=== PATIENT | male | born 1940 | race Caucasian/White ===

== ENCOUNTER 2016-12-02 05:16 | Inpatient (IN) | payer MEDICARE ==
[~2016-12-02] VITALS: Ht 167.6 cm; Wt 83.9 kg
[2016-12-02 05:25] VITALS: BP 138/78; PULSE 80; RESP 16; TEMP 99.7; O2SAT 97
--- NOTE | 2016-12-02 05:25 | NUR ---
Placed in room 2 . Placed on chemic mangler, blood pressure machine and pulse oximeter. To gown for exam. Side rails up. Report given to Say CRESPO.
--- NOTE | 2016-12-02 05:30 | NUR ---
Pt BIB ALS with c/o sharp subternal chestpain, 07/11, non-radiating, started when pt woke up. Pt c/o pain upon inspiration. Given 162 mg aspirin en-route, POCT glucose 412 per EMT. Vietnamese speaking, A&Ox4, denies SOB, denies N/V/D, skin intact. Will continue to monitor
--- NOTE | 2016-12-02 05:32 | NUR ---
Louise mai in [facility] - 12/02/16 at 0627 by [email or web address] MD Thrasher at bedside examining pt
--- NOTE | 2016-12-02 05:46 | NUR ---
ER at bedside examining patient.
[2016-12-02] MEDS ORDERED: ASPIRIN 81 MG TAB.CHEW PO ONE (06:00)
[2016-12-02] MEDS ORDERED: NITROGLYCERIN 0.4 MG TAB.SUBL SL ONE (06:00)
[2016-12-02] MEDS ORDERED: NACL 0.9% 1,000 ML IV ONE ×2 (06:00→07:15)
[2016-12-02] MEDS ORDERED: MORPHINE SULFATE 10 MG/ML VIAL IVP ONE (06:00)
[2016-12-02 06:25] LABS: HEMATOCRIT 36.1 % (36-54); HEMOGLOBIN 12.3 g/dL (14.0-18.0); MEAN CORPUSCULAR HEMOGLOBIN 32 pg (27-31); MEAN CORPUSCULAR HGB CONC 34 % (32-36); MEAN CORPUSCULAR VOLUME 93 fL (79.0-98.0); PLATELET COUNT (AUTO) 173 K/uL (130-430); RED CELL DISTRIBUTION WIDTH 13.7 % (9.0-15.0); WHITE BLOOD COUNT (AUTO) 21.7 K/uL (4.8-10.8)
--- NOTE | 2016-12-02 06:28 | NUR ---
Pt stated he does not know medication list and does not know family's phone number. Unable to obtain medication list
[2016-12-02 06:31] LABS: ANION GAP 12 (5-15); CALCIUM 9.1 mg/dL (8.4-11.0); CHLORIDE 100 mmol/L (98-107); CREATININE 1.26 mg/dL (0.55-1.30); GLUCOSE 333 mg/dL (70-99); POTASSIUM 4.2 mmol/L (3.5-5.1); SODIUM SERUM 134 mmol/L (136-145); UREA NITROGEN, BLOOD 18 mg/dL (8-21)
[2016-12-02 06:35] LABS: ALANINE AMINOTRANSFERASE 16 U/L (12-78); ALBUMIN 3.3 g/dL (3.4-4.8); ASPARTATE AMINOTRANSFERASE 16 U/L (10-37); CHOLESTEROL 150 mg/dL (<200); CREATINE KINASE, TOTAL 54 U/L (39-308); HDL CHOLESTEROL 35 mg/dL (>45); LDL CHOLESTEROL 89 mg/dL (<100); TOTAL PROTEIN, SERUM 7.1 g/dL (6.4-8.3); TRIGLYCERIDES 115 mg/dL (30-150)
[2016-12-02 06:37] LABS: INR 1.1 (0.80-1.20); PROTHROMBIN TIME 11.5 SECS (9.5-12.5)
--- NOTE | 2016-12-02 06:42 | NUR ---
BP 100/54 , HR 77, 100% on 2L NC. Pt stated his chestpain is 9/10. at bedside evaluating pt
[2016-12-02 06:49] LABS: BILIRUBIN,URINE NEGATIVE (NEGATIVE); CLARITY/URINE CLEAR (CLEAR); COLOR,URINE YELLOW (YELLOW); GLUCOSE,URINE 3+ (NEGATIVE); KETONES,URINE TRACE (NEGATIVE); LEUKOCYTE ESTERASE ,URINE TRACE (NEGATIVE); NITRITE, URINE NEGATIVE (NEGATIVE); PROTEIN URINE NEGATIVE (NEGATIVE); UROBILINOGEN,URINE 0.2 (0.2-1.0)
[2016-12-02 06:51] LABS: BLOOD, URINE TRACE (NEGATIVE)
[2016-12-02 06:56] LABS: BACTERIA,URINE FEW /HPF (None Seen); MUCUS,URINE 1+ /LPF (None Seen); RBC,URINE 0-3 /HPF (0-3); YEAST,URINE Few /HPF (None Seen)
[2016-12-02] MEDS ORDERED: cefTRIAXone 1 GM in D5W 50 ML IV ONE (07:00)
--- NOTE | 2016-12-02 07:05 | NUR ---
Report given to sarah CRESPO, care endorsed
--- NOTE | 2016-12-02 07:22 | NUR ---
2L fluid ordered in ER, Dr. Chiang ordered NS for floor as well-meets fluid requirement for sepsis.
--- NOTE | 2016-12-02 07:28 | NUR ---
Patient in stable condition, sleeping in bed, wakens to name, no distress noted.
--- NOTE | 2016-12-02 07:43 | NUR ---
ADMIT NOTE Received pt from ER to the floor with a diagnosis of Sepsis. Admission process initiated. patient oriented to pain management, safety and call light-teach back done.
--- NOTE | 2016-12-02 07:45 | NUR ---
Patient will be admitted to care of Dr. Chiang. Admitted to tele unit. Will go to room 135-admission room. Summary report printed. Report given to Kay CRESPO at bedside.
[2016-12-02 07:57] VITALS: BP 113/59; PULSE 68; RESP 24; TEMP 98.4; O2SAT 96
--- NOTE | 2016-12-02 08:00 | NUR ---
Received report from Admission RN Kay. Patient is awake alert oriented x3, forgetful. Pt unable to tell me where he came from, he does not remember the name of the facility. Pt complain of chest pain 8/10 especially when breathing in. Will monitor and medicate per order. Pt has two IV sites, Right ac and left AV, both are intact , and flushing well. Breakfast ordered for pt who is a diabetic. Educated on the call light as well as fall precautions, and to call before getting up. Pt verbalized understanding. Translation provided by Estephania THACKER.
[2016-12-02 08:25] LABS: ATYPICAL LYMPHOCYTES % 0 % (0-0); BAND % (MANUAL) 0 % (0-6); BASOPHILS % (MANUAL) 0 % (0-2); EOSINOPHILS % (MANUAL) 1 % (0-7); LYMPHOCYTES % (MANUAL) 10 % (20-46); MONOCYTES % (MANUAL) 4 % (0-11)
[2016-12-02] MEDS ORDERED: GLUCOSE 15 GM GEL (in 37.5 GM TUBE) PO PRN (08:45)
[2016-12-02] MEDS ORDERED: DEXTROSE 50%-WATER 50 ML DISP.SYRIN IVP PRN ×2 (08:45)
[2016-12-02] MEDS: NACL 0.9% 1,000 ML IV SCH ×2 (08:55→23:33)
[2016-12-02] MEDS ORDERED: VANCOMYCIN HCL 1,000 MG in NS 250 ML IV SCH (10:00)
[2016-12-02] MEDS ORDERED: DOCUSATE SODIUM 100 MG CAPSULE PO PRN (10:00)
[2016-12-02] MEDS ORDERED: LORazepam 2 MG/ML VIAL IVP PRN (10:00)
[2016-12-02] MEDS ORDERED: ONDANSETRON HCL 4 MG/2 ML VIAL IVP PRN (10:00)
[2016-12-02] MEDS ORDERED: MAGNESIUM SULFATE 50 ML IV PRN (10:00)
--- NOTE | 2016-12-02 10:38 | NUR ---
Cardiology consult Order received for a consult with Dr Casillas for chest pain. Dr Casillas currently rounding, and was made aware by Dr Chiang. Will follow up as needed.
[2016-12-02] MEDS: ACETAMINOPHEN 325 MG TABLET PO PRN ×3 (10:40→20:40)
[2016-12-02] MEDS: MORPHINE 2 MG/ML INJ. SYRINGE IVP PRN ×2 (10:56→19:00)
--- NOTE | 2016-12-02 11:28 | NUR ---
PT REFUSES CT SCAN PT STATED HE DOES NOT WANT ADDITIONAL TESTS AND THAT "IF IT IS HIS TIME TO GO, THEN HE IS OK WITH THAT." UNABLE TO OBTAIN CONSENT FROM THE CONTACT LISTED ON FACE-SHEET: NUMBER IS NON-FUNCTIONAL. PT DOES NOT RECALL NAME OR PHONE NUMBER OF CONTACT
[2016-12-02 11:29] VITALS: BP 111/53; PULSE 73; RESP 16; TEMP 99.4; O2SAT 93
[2016-12-02] MEDS: INSULIN REGULAR, HUMAN 100 UNITS/ML, 10 ML VIAL (novoLIN R) SUBCUT PRN ×3 (11:53→20:43)
--- NOTE | 2016-12-02 12:00 | NUR ---
Unable to confirm patient identity Patient does note have anyone we cauld call. Case management and admissions made aware and ER was also made aware on admission. Unable to obtain consent for ct contrast consent
--- NOTE | 2016-12-02 12:09 | NUR ---
Dr rodríguez notified of lactic acid as well as pt refusing ct scan.
--- NOTE | 2016-12-02 12:30 | NUR ---
Pt moved to 105A due to noted increased pt confusion forgetful unable to call for help using the call light. Bed alarm armed, fall bracelet on arm.
--- NOTE | 2016-12-02 13:11 | NUR ---
Called dr Ce Larsen MD listed as the primary MD. Got numbers for Pt's son and intensive care anaesthetist. Clement Contreas : Darby Hebert personal lines account manager. : [phone]
[2016-12-02] MEDS: PIPERACILLIN/TAZO 3.375/DEX-IS 50 ML IV SCH ×3 (13:15→23:29)
--- NOTE | 2016-12-02 13:18 | NUR ---
CODE STATUS - FULL CODE per son. Also received consent for CT chest with contrast from son. Questionnaire filled out with son over the phone.
[2016-12-02] MEDS ORDERED: IOHEXOL 100 ML IV ONE (13:48)
--- NOTE | 2016-12-02 14:05 | NUR ---
Roller Helper Note ADJUNCT FACULTY INSTRUCTOR spoke briefly with patient's son, Clement, after he spoke with Aron CRESPO. He stated he planned for patient to return to the place he was living prior to hospitalization. The number he provided for patient's home, , is no longer in service. He did not have an address available. [facility] phoned the number for Darby Hebert, [phone], possibly patient's caregiver. A man answered but [facility] had some difficulty communicating with him. He stated he knows the patient and that Darby should be home later today. [facility] will attempt to call the number again later. Addendum: 12/02/16 at 1538 by Angela Raines LCSW [facility] has attempted to phone caregiver Darby Hebert, , several times. One other time the same man answered as above. He now stated Darby should be home after 4pm. Will try again after 4. Addendum: 12/02/16 at 1727 by Angela Raines LCSW ADJUNCT FACULTY INSTRUCTOR spoke with Darby Hebert who stated patient has not lived with her for three weeks. She could no longer manage his care and sent him to [facility]. She did not know where he was discharged to after that. ADJUNCT FACULTY INSTRUCTOR spoke with [facility] [employer] who was able to find out through the fire station where patient had been picked up: [address] [place] [address]. ADJUNCT FACULTY INSTRUCTOR phoned [facility] [place] ([phone]). They referred to [employer] ([phone]). They referred to [facility] ([phone]), who referred back to [facility]. The address is actually [address] [place] [address] and under the [employer] [place] [facility] [place] jurisdiction. They found a phone number associated with the address, . ADJUNCT FACULTY INSTRUCTOR phoned. Ra Domingo answered. Patient rents a room there. If patient is ready for discharge home, Ra could transport him. ADJUNCT FACULTY INSTRUCTOR notified Jessie CRESPO of above and Jeanine in Admitting. Patient home information: Rents a room at [address] [place] [address] Ra Domingo cleaner assistant [phone]
--- NOTE | 2016-12-02 14:20 | NUR ---
Dr Feldman consult paged.
[2016-12-02 15:30] VITALS: BP 118/62; PULSE 86; RESP 16; TEMP 101; O2SAT 94
--- NOTE | 2016-12-02 17:49 | NUR ---
DR GILBERT ROUNDS NOTIFIED OF NEW CONSULT AND FEVER. ORDERS RECEIVED
--- NOTE | 2016-12-02 19:04 | NUR ---
Closing note. Patient repoeted pain 6/10 to the chest. PRN morphine administered. Pt is otherwise stable. Temp at [facility] tie is 99.2F. Ice backs behind head and the axillas as well.
[2016-12-02 19:45] VITALS: BP 109/52; PULSE 73; RESP 20; TEMP 99.4; O2SAT 95
--- NOTE | 2016-12-02 19:45 | NUR ---
INITIAL NOTES: PT IS AWAKE , CONFUSED ; DENIED PAIN AT THIS TIME; TEMP 99.4; PT REFUSED ICE PACK ; WILL MONITOR AND IF NEEDED WILL GIVE TYLENOL; OTHERWISE VITALS ARE STABLE ; NOT IN ANY ACUTE DISTRESS; ON ROOM AIR , RESPIRATION EVEN AND NONLABORED.IV FLUID INFUSING TO THE LEFT HAND 20 G, NO S/S OF ANY INFILTRATION NOTED ;PT IS INCONTINENT WITH URINE , PERICARE GIVEN AND LINEN CHANGED ;TELE MONITOR SHOWS SR WITH BBB ; BED IN LOW AND LOCK POSITION ; SIDE RAILS ARE UP X3; CALL STEPHENS IN REACH ; ROOM CLOSE TO NURSES STATION ;WILL CONTINUE TO MONITOR.
[2016-12-02] MEDS: FLUCONAZOLE 200 mg/ NS 100 ML IV SCH (20:40)
[2016-12-02] MEDS: LACTOBACILLUS RHAMNOSUS GG 1 CAP CAPSULE PO SCH (20:40)
--- NOTE | 2016-12-02 20:40 | NUR ---
MEDICATION/ FEVER: TEMP 100.4 F ;MEDICATED PT WITH TYLENOL AND ALSO PROVIDED DUE MEDS ;PT ATE APPLE SAUCE ;PT REFUSED COLD PACK , WHEN PLACED IT UNDER THE ARMS PT TOOK IT AND THREW IT .WILL CONTINUE TO MONITOR.
[2016-12-02] MEDS: HEPARIN SODIUM,PORCINE 5000 UNITS/ML VIAL SUBCUT SCH (21:01)
--- NOTE | 2016-12-02 21:40 | NUR ---
TEMP: TEMP 99F; WILL MONITOR PT
--- NOTE | 2016-12-02 23:05 | NUR ---
RN NOTES: PT IS SLEEPING; NOT IN ANY ACUTE DISTRESS; WILL CONTINUE TO MONITOR.
[2016-12-03] VITALS (7 sets, daily range): BP systolic 110–127; BP diastolic 55–68; PULSE 61–69; RESP 16–20; TEMP 97.1–98.5; O2SAT 93–98; Ht 167.6 cm; Wt 83.9 kg
--- NOTE | 2016-12-03 01:40 | NUR ---
RN ROUNDS: PT IS SLEEPING , NOT IN ANY ACUTE DISTRESS; WILL CONTINUE TO MONITOR.
[2016-12-03] MEDS: NACL 0.9% 1,000 ML IV SCH ×2 (03:16→23:30)
--- NOTE | 2016-12-03 04:00 | NUR ---
RN ROUNDS: PT IS SLEEPING COMFORTABLY ; IV FLUID IS INFUSING WELL ;RESPIRATION EVEN AND NONLABORED . WILL CONTINUE TO MONITOR.
[2016-12-03] MEDS: PIPERACILLIN/TAZO 3.375/DEX-IS 50 ML IV SCH ×4 (06:05→23:29)
[2016-12-03 06:32] LABS: BASOPHILS # (AUTO) 0.1 K/uL (0.0-0.2); BASOPHILS % (AUTO) 0.4 % (0.0-2.0); EOSINOPHILS # (AUTO) 0.2 K/uL (0.0-0.4); HEMATOCRIT 36.1 % (36-54); HEMOGLOBIN 12.6 g/dL (14.0-18.0); LYMPHOCYTES # (AUTO) 2.2 K/uL (1.0-5.5); LYMPHOCYTES % (AUTO) 10.5 % (20.5-51.5); MEAN CORPUSCULAR HEMOGLOBIN 32 pg (27-31); MEAN CORPUSCULAR HGB CONC 35 % (32-36); MEAN CORPUSCULAR VOLUME 93 fL (79.0-98.0); MONOCYTES # (AUTO) 1.3 K/uL (0.0-1.0); MONOCYTES % (AUTO) 6.3 % (1.7-9.3); NEUTROPHILS # (AUTO) 17.3 K/uL (1.8-7.7); NEUTROPHILS % (AUTO) 81.8 % (40.0-70.0); PLATELET COUNT (AUTO) 152 K/uL (130-430); RED BLOOD CELL COUNT(AUTO) 3.89 MIL/uL (4.2-6.2); RED CELL DISTRIBUTION WIDTH 13.2 % (9.0-15.0); WHITE BLOOD COUNT (AUTO) 21.1 K/uL (4.8-10.8)
[2016-12-03 06:50] LABS: ANION GAP 13 (5-15); CALCIUM 8.5 mg/dL (8.4-11.0); CHLORIDE 103 mmol/L (98-107); CREATININE 1.04 mg/dL (0.55-1.30); GLUCOSE 137 mg/dL (70-99); POTASSIUM 3.3 mmol/L (3.5-5.1); SODIUM SERUM 139 mmol/L (136-145); UREA NITROGEN, BLOOD 10 mg/dL (8-21)
--- NOTE | 2016-12-03 06:50 | NUR ---
CLOSING NOTES: PT IS COMFORTABLE ; RESPIRATION AILYN AND NONLABORED ;NOT IN ANY ACUTE DISTRESS; BS 135 , NO COVERAGE NEEDED , DUE MEDS GIVEN ; NO SIGNIFICANT CHANGES IN THE CONDITION ; WILL CONTINUE TO MONITOR AND WILL ENDORSE TO NEXT SHIFT NURSE
[2016-12-03 07:06] LABS: ALANINE AMINOTRANSFERASE 11 U/L (12-78); ALBUMIN 2.6 g/dL (3.4-4.8); ASPARTATE AMINOTRANSFERASE 14 U/L (10-37); THYROID STIMULATING HORMONE 6.23 uIu/mL (0.36-3.74); TOTAL BILIRUBIN 0.9 mg/dL (0.0-1.0); TOTAL PROTEIN, SERUM 6.2 g/dL (6.4-8.3)
--- NOTE | 2016-12-03 07:30 | NUR ---
CLOSING NOTES : REPORT GIVEN TO RN AT BEDSIDE
--- NOTE | 2016-12-03 08:00 | NUR ---
A/OX2,ARMENIAN SPEAKING ONLY,VSS,RESTING WELL IN BED,NO C/O PAIN OR DISCOMFORT.NEEDS ATTENDED,CALL LIGHT WITHIN PT REACH,SAFETY MAINTAINED.CONTINUE TO MONITOR PT.
[2016-12-03] MEDS ORDERED: LEVOTHYROXINE SODIUM 0.025 MG TABLET PO ONE (09:00)
[2016-12-03] MEDS: LACTOBACILLUS RHAMNOSUS GG 1 CAP CAPSULE PO SCH ×2 (09:06→20:08)
[2016-12-03] MEDS: HEPARIN SODIUM,PORCINE 5000 UNITS/ML VIAL SUBCUT SCH ×2 (09:14→20:10)
--- NOTE | 2016-12-03 10:00 | NUR ---
PT URINATED IN THE URINAL,IVF CONTINUE INFUSING,HOURLY ROUNDS MADE.
--- NOTE | 2016-12-03 12:00 | NUR ---
AM CARE PROVIDED AT BEDSIDE.ACCUCHECK 220MG/DL,GIVE 2 UNITS REGULAR INSULINS PER SLIDING SCALE ORDER. PT EATING WELL FOR LUNCH,NO N/V.GIVE IV ANTIBIOTICS DUE.
[2016-12-03] MEDS: INSULIN REGULAR, HUMAN 100 UNITS/ML, 10 ML VIAL (novoLIN R) SUBCUT PRN ×3 (12:17→20:21)
--- NOTE | 2016-12-03 14:00 | NUR ---
SLEEPING AGAIN IN BED.NO ACUTE DISTRESS NOTED.
--- NOTE | 2016-12-03 16:00 | NUR ---
vss,no c/o pain or discomfort,sinus rhythm hr 60's.
--- NOTE | 2016-12-03 16:04 | NUR ---
Nutrition Update Solomon Scale 16 noted Pt was admitted for sepsis Diet: [facility] BMI: 29.9 kg/m2 RD to follow up per nutrition care standards.
--- NOTE | 2016-12-03 18:00 | NUR ---
accucheck before dinner 235mg/dl.give 4 units regular insulins as per sliding scale order.eating well for dinner.
--- NOTE | 2016-12-03 19:45 | NUR ---
PM SHIFT ASSESSMENT Received patient in bed, aox2, telugu speaking, no distress noted. On room air. Vital signs stable. Denies any pain or discomfort at this time. IV line to right ac intact and patent, IVF of NS infusing at 100 cc/hr. Patient repositioned and turned with pillow support, oriented to use call light for nurse assistance, call light within reach, safety measures in place, bed alarm on, will closely monitor.
[2016-12-03] MEDS: FLUCONAZOLE 200 mg/ NS 100 ML IV SCH (20:08)
[2016-12-03] MEDS: POTASSIUM CHLORIDE 10 MEQ TAB.PRT.SR PO PRN (20:11)
--- NOTE | 2016-12-03 21:00 | NUR ---
RN ROUNDS Patient awake, no distress noted, Denies any pain or discomfort at this time. Due medications administered. Aspiration precautions maintained, blood sugar check this pm, 239, covered with sliding scale insulin per Md order.
--- NOTE | 2016-12-03 22:25 | NUR ---
RN ROUNDS Patient sleeping, respirations even and unlabored, on room air, IVF infusing, repositioned and turned with pillow support. Call light remains within reach, safety measures in place, will closely monitor.
--- NOTE | 2016-12-04 00:17 | NUR ---
RN ROUNDS Patient continues to sleep, respirations even and unlabored, vitals stable. Repositioned and turned with pillow support. Call light remains within reach, safety measures in place, will closely monitor.
--- NOTE | 2016-12-04 02:09 | NUR ---
RN ROUNDS Patient continues to sleep, respirations even and unlabored, IVF ongoing, repositioned and turned with pillow support. Call light remains within reach, safety and fall measures in place, will closely monitor.
--- NOTE | 2016-12-04 04:01 | NUR ---
RN ROUNDS Patient asleep, respirations even and unlabored, vitals stable. repositioned and turned with pillow support. Call light within reach and safety measures in place, will closely monitor.
[2016-12-04 04:13] VITALS: BP 130/61; PULSE 61; RESP 18; TEMP 97.4; O2SAT 96
[2016-12-04] MEDS: PIPERACILLIN/TAZO 3.375/DEX-IS 50 ML IV SCH ×4 (05:04→23:35)
[2016-12-04] MEDS: INSULIN REGULAR, HUMAN 100 UNITS/ML, 10 ML VIAL (novoLIN R) SUBCUT PRN ×4 (05:54→20:17)
[2016-12-04] MEDS: LEVOTHYROXINE SODIUM 0.025 MG TABLET PO SCH (05:56)
--- NOTE | 2016-12-04 06:12 | NUR ---
RN ROUNDS Patient awake, no distress noted, denies any pain at this time. Due medications administered. Blood sugar check this am of 177. Covered with regular insulin sliding scale. Patient repositioned and turned with pillow support. Needs attended to, call light within reach and safety measures maintained. Will continue to monitor until report given to am nurse.
[2016-12-04 07:27] LABS: BASOPHILS # (AUTO) 0.1 K/uL (0.0-0.2); BASOPHILS % (AUTO) 0.6 % (0.0-2.0); EOSINOPHILS # (AUTO) 0.3 K/uL (0.0-0.4); EOSINOPHILS % (AUTO) 2.6 % (0.0-4.0); HEMATOCRIT 36.5 % (36-54); HEMOGLOBIN 12.4 g/dL (14.0-18.0); LYMPHOCYTES # (AUTO) 2.2 K/uL (1.0-5.5); LYMPHOCYTES % (AUTO) 16.5 % (20.5-51.5); MEAN CORPUSCULAR HEMOGLOBIN 32 pg (27-31); MEAN CORPUSCULAR HGB CONC 34 % (32-36); MEAN CORPUSCULAR VOLUME 93 fL (79.0-98.0); MONOCYTES # (AUTO) 0.8 K/uL (0.0-1.0); MONOCYTES % (AUTO) 5.9 % (1.7-9.3); NEUTROPHILS # (AUTO) 9.8 K/uL (1.8-7.7); NEUTROPHILS % (AUTO) 74.4 % (40.0-70.0); PLATELET COUNT (AUTO) 185 K/uL (130-430); RED BLOOD CELL COUNT(AUTO) 3.92 MIL/uL (4.2-6.2); RED CELL DISTRIBUTION WIDTH 13.4 % (9.0-15.0); WHITE BLOOD COUNT (AUTO) 13.2 K/uL (4.8-10.8)
[2016-12-04 07:30] LABS: ANION GAP 8 (5-15); CALCIUM 8.3 mg/dL (8.4-11.0); CHLORIDE 105 mmol/L (98-107); GLUCOSE 147 mg/dL (70-99); POTASSIUM 3.4 mmol/L (3.5-5.1); SODIUM SERUM 136 mmol/L (136-145); UREA NITROGEN, BLOOD 9 mg/dL (8-21)
[2016-12-04 08:00] VITALS: BP 116/62; PULSE 68; RESP 18; TEMP 98.7; O2SAT 95
--- NOTE | 2016-12-04 09:00 | NUR ---
Patient awake and alert, oriented x 2. SR on telemetry. He is set up to eat, and feeds himself. Berry Echevarria RN
[2016-12-04] MEDS: LACTOBACILLUS RHAMNOSUS GG 1 CAP CAPSULE PO SCH ×2 (10:25→20:10)
[2016-12-04] MEDS: NACL 0.9% 1,000 ML IV SCH ×2 (10:41→20:47)
[2016-12-04 12:00] VITALS: BP 121/71; PULSE 68; RESP 20; TEMP 98.3; O2SAT 96
--- NOTE | 2016-12-04 12:00 | NUR ---
BS this afternoon, and patient receiving regular insulin per sliding scale per do. Patient is set up to eat and eats himself. Berry Echevarria RN
[2016-12-04] MEDS: HEPARIN SODIUM,PORCINE 5000 UNITS/ML VIAL SUBCUT SCH ×2 (13:10→20:14)
[2016-12-04 16:46] VITALS: BP 121/57; PULSE 60; RESP 20; TEMP 98.7; O2SAT 97
--- NOTE | 2016-12-04 18:00 | NUR ---
Patient BS is 203, and patient receiving regular insulin per sliding scale per do. Berry Echevarria RN
--- NOTE | 2016-12-04 19:40 | NUR ---
PM SHIFT ASSESSMENT Received patient in bed, aox2, no distress noted. On room air. Vital signs stable. Denies any pain or discomfort at this time. IV line to right ac intact and patent, IVF of NS infusing at 100 cc/hr. Patient repositioned and turned with pillow support, oriented to use call light for nurse assistance, call light within patients reach, safety measures in place, bed alarm on, will closely monitor.
[2016-12-04 20:00] VITALS: BP 112/63; PULSE 67; RESP 20; TEMP 98.6; O2SAT 98
[2016-12-04] MEDS: FLUCONAZOLE 200 mg/ NS 100 ML IV SCH (20:10)
[2016-12-04] MEDS: POTASSIUM CHLORIDE 10 MEQ TAB.PRT.SR PO PRN (20:17)
--- NOTE | 2016-12-04 21:30 | NUR ---
RN ROUNDS/ ACCUCHECK Patient awake, no distress noted, Denies any pain or discomfort at this time. Due medications administered. Aspiration precautions maintained, blood sugar check this pm, 238, covered with regular insulin sliding scale and levemir insulin per Md order. Patient repositioned for comfort, safety measures in place, will continue to monitor.
[2016-12-05] VITALS: BP 130/69; PULSE 63; RESP 17; TEMP 99.6; O2SAT 96
--- NOTE | 2016-12-05 00:03 | NUR ---
RN ROUNDS Patient resting quietly, denies any pain at this time, no sob noted, vitals stable. Repositioned and turned with pillow support. Incontinence care provided. Call light remains within reach, safety measures in place, will continue to monitor.
--- NOTE | 2016-12-05 02:07 | NUR ---
RN ROUNDS Patient asleep, respirations even and unlabored, IVF ongoing, repositioned and turned with pillow support. Call light remains within reach, safety and fall measures in place, will closely monitor.
--- NOTE | 2016-12-05 04:01 | NUR ---
RN ROUNDS Patient continues to sleep, respirations even and unlabored, vital signs stable, repositioned for comfort. Call light remains within reach, safety and fall measures in place, will continue to monitor.
[2016-12-05 04:04] VITALS: BP 129/72; PULSE 61; RESP 18; TEMP 98.2; O2SAT 98
[2016-12-05] MEDS: LEVOTHYROXINE SODIUM 0.025 MG TABLET PO SCH (06:01)
[2016-12-05] MEDS: NACL 0.9% 1,000 ML IV SCH ×2 (06:02→15:08)
[2016-12-05] MEDS: PIPERACILLIN/TAZO 3.375/DEX-IS 50 ML IV SCH ×3 (06:06→17:22)
--- NOTE | 2016-12-05 06:29 | NUR ---
RN ROUNDS/ ACCU CHECK Patient awake, no distress noted, denies any pain at this time. Due medications administered. Blood sugar check this am of 114. Patient repositioned for comfort, needs attended to, call light within reach and safety measures maintained. Will continue to monitor until report given to am nurse.
[2016-12-05 07:25] LABS: BASOPHILS % (AUTO) 0.3 % (0.0-2.0); EOSINOPHILS # (AUTO) 0.3 K/uL (0.0-0.4); EOSINOPHILS % (AUTO) 2.5 % (0.0-4.0); HEMATOCRIT 34.8 % (36-54); HEMOGLOBIN 12.3 g/dL (14.0-18.0); MEAN CORPUSCULAR HEMOGLOBIN 33 pg (27-31); MEAN CORPUSCULAR HGB CONC 35 % (32-36); MEAN CORPUSCULAR VOLUME 93 fL (79.0-98.0); MONOCYTES # (AUTO) 0.9 K/uL (0.0-1.0); NEUTROPHILS % (AUTO) 67.2 % (40.0-70.0); PLATELET COUNT (AUTO) 207 K/uL (130-430); RED BLOOD CELL COUNT(AUTO) 3.76 MIL/uL (4.2-6.2); RED CELL DISTRIBUTION WIDTH 13.6 % (9.0-15.0); WHITE BLOOD COUNT (AUTO) 13.2 K/uL (4.8-10.8)
[2016-12-05 07:28] LABS: ANION GAP 7 (5-15); CALCIUM 8.3 mg/dL (8.4-11.0); CHLORIDE 106 mmol/L (98-107); CREATININE 1.09 mg/dL (0.55-1.30); GLUCOSE 128 mg/dL (70-99); POTASSIUM 3.7 mmol/L (3.5-5.1); SODIUM SERUM 137 mmol/L (136-145); UREA NITROGEN, BLOOD 10 mg/dL (8-21)
--- NOTE | 2016-12-05 08:00 | NUR ---
initial notes rec patiens awake laert with periods of confusion. hob slightly elevated with iv infiltrated noted. resp easy and unlabored. bed in low position and side rails up and locked. call light within reached and will continue to monitor patient. seen by dr talbert.
--- NOTE | 2016-12-05 10:00 | NUR ---
rounds iv restarted on the l forearm. no infiltration noted. reorient with his surroundings for his confusion.
[2016-12-05] MEDS: LACTOBACILLUS RHAMNOSUS GG 1 CAP CAPSULE PO SCH ×2 (10:21→20:54)
[2016-12-05] MEDS: HEPARIN SODIUM,PORCINE 5000 UNITS/ML VIAL SUBCUT SCH ×2 (10:22→20:58)
[2016-12-05 11:38] VITALS: BP 128/70; PULSE 62; RESP 19; TEMP 97.6; O2SAT 96
--- NOTE | 2016-12-05 12:00 | NUR ---
rounds incontinent at intervals and keep patient dry and clean. no hypo hyperglycemic reaction noted.
[2016-12-05] MEDS: INSULIN REGULAR, HUMAN 100 UNITS/ML, 10 ML VIAL (novoLIN R) SUBCUT PRN ×3 (12:47→20:59)
--- NOTE | 2016-12-05 15:15 | NUR ---
rounds had a bowel movement and large amount in bed. turned repositioned self in bed. pt went ot sleep after.
[2016-12-05 15:50] VITALS: BP 124/63; PULSE 62; RESP 19; TEMP 97; O2SAT 97
--- NOTE | 2016-12-05 16:00 | NUR ---
rounds had a large amount of pasty stool. turned repositioned for comfort. no sob noted.
--- NOTE | 2016-12-05 18:30 | NUR ---
closing notes pt is asleep at this time. no sob noted. no periods of confusion at this time. pt close to the nurses station. stable. no sob noted.
--- NOTE | 2016-12-05 19:55 | NUR ---
OPENING NOTE PATIENT IS A/OX2/3. NO SIGNS OF DISTRESS. BREATHING IS NON LABORED. VITAL SIGNS ARE STABLE. PATIENT HAS NO COMPLAINT OF PAIN. IV IS PATENT AND SHOWS NO SIGNS OF COMPLICATIONS. BED ALARM IS ON. PATIENT INSTRUCTED TO CALL FOR ASSISTANCE. CALL LIGHT IS IN PLACE. WILL CONTINUE TO MONITOR.
[2016-12-05 19:57] VITALS: BP 125/63; PULSE 62; RESP 15; TEMP 98.9; O2SAT 97
--- NOTE | 2016-12-05 20:45 | NUR ---
LILIYA CARE PATIENT WAS SOILED. LILIYA CARE WAS PERFORMED. PATIENT TOLERATED IT WILL. RUBEN CHAPMAN ASSISTED.
[2016-12-05] MEDS: FLUCONAZOLE 200 mg/ NS 100 ML IV SCH (20:54)
--- NOTE | 2016-12-05 22:10 | NUR ---
ROUNDS PATIENT IS IN BED RESTING. NO SIGNS OF DISTRESS. BREATHING IS NON LABORED. CALL LIGHT IS WITHIN REACH. BED ALARM IS ON. WILL CONTINUE TO MONITOR.
[2016-12-06] VITALS: BP 126/64; PULSE 66; RESP 18; TEMP 97.8; O2SAT 95
[2016-12-06] MEDS: PIPERACILLIN/TAZO 3.375/DEX-IS 50 ML IV SCH ×2 (00:39→05:26)
--- NOTE | 2016-12-06 01:09 | NUR ---
ROUNDS PATIENT IS IN BED SLEEPING. NO SIGNS OF DISTRESS. BREATHING IS NON LABORED. CALL LIGHT IS WITHIN REACH. BED ALARM IS ON. WILL CONTINUE TO MONITOR.
[2016-12-06 04:00] VITALS: BP 124/59; PULSE 65; RESP 16; TEMP 97.1; O2SAT 94
[2016-12-06] MEDS: NACL 0.9% 1,000 ML IV SCH ×2 (05:27→09:36)
--- NOTE | 2016-12-06 05:30 | NUR ---
HYPOGLYCEMIA PATIENT BLOOD SUGAR WAS 52. PATIENT SHOWED NO SIGNS HYPOGLYCEMIA. PATIENT WAS GIVEN GLUCOSE GEL ORDERED. PATIENT BLOOD SUGAR WAS 80. PATIENT IS IN BED RESTING. NO SIGNS OF DISTRESS. BREATHING IS NON LABORED. CALL LIGHT IS WITHIN REACH. BED ALARM IS ON. WILL CONTINUE TO MONITOR.
[2016-12-06] MEDS: GLUCOSE 15 GM GEL (in 37.5 GM TUBE) PO PRN (05:37)
[2016-12-06] MEDS: LEVOTHYROXINE SODIUM 0.025 MG TABLET PO SCH (06:05)
--- NOTE | 2016-12-06 07:08 | NUR ---
CLOSING NOTES PATIENT IS IN BED RESTING. NO SIGNS OF DISTRESS. BREATHING IS NON LABORED. IV IS PATENT AND SHOWS NO SIGNS OF COMPLICATIONS. CALL LIGHT IS WITHIN REACH. BED ALARM IS ON. WILL ENDORSE TO THE MORNING NURSE.
[2016-12-06 07:50] LABS: BASOPHILS % (AUTO) 0.3 % (0.0-2.0); EOSINOPHILS # (AUTO) 0.3 K/uL (0.0-0.4); EOSINOPHILS % (AUTO) 3.2 % (0.0-4.0); HEMATOCRIT 36.4 % (36-54); HEMOGLOBIN 12.3 g/dL (14.0-18.0); LYMPHOCYTES # (AUTO) 1.6 K/uL (1.0-5.5); MEAN CORPUSCULAR HEMOGLOBIN 32 pg (27-31); MEAN CORPUSCULAR HGB CONC 34 % (32-36); MEAN CORPUSCULAR VOLUME 94 fL (79.0-98.0); MONOCYTES % (AUTO) 8.9 % (1.7-9.3); NEUTROPHILS # (AUTO) 7.9 K/uL (1.8-7.7); NEUTROPHILS % (AUTO) 72.6 % (40.0-70.0); PLATELET COUNT (AUTO) 222 K/uL (130-430); RED BLOOD CELL COUNT(AUTO) 3.88 MIL/uL (4.2-6.2); RED CELL DISTRIBUTION WIDTH 13.5 % (9.0-15.0); WHITE BLOOD COUNT (AUTO) 10.8 K/uL (4.8-10.8)
[2016-12-06 08:00] VITALS: BP 120/74; PULSE 58; RESP 20; TEMP 97.7; O2SAT 95
--- NOTE | 2016-12-06 08:00 | NUR ---
initial notes rec patient asleep but arousable to stimuli with hob slightly elevated. no periods of confusion at this time.ivf infusing well on the l forearm. no infiltration noted. denies any chest pain. bed in low position and side rails up and locked. call light within reached and bed alarm is on. will continue to monitor patient.
[2016-12-06 08:19] LABS: ANION GAP 8 (5-15); CALCIUM 8.7 mg/dL (8.4-11.0); CHLORIDE 105 mmol/L (98-107); CREATININE 1.09 mg/dL (0.55-1.30); GLUCOSE 95 mg/dL (70-99); POTASSIUM 3.4 mmol/L (3.5-5.1); SODIUM SERUM 139 mmol/L (136-145); UREA NITROGEN, BLOOD 7 mg/dL (8-21)
[2016-12-06] MEDS: LACTOBACILLUS RHAMNOSUS GG 1 CAP CAPSULE PO SCH ×2 (09:27→21:03)
[2016-12-06] MEDS: HEPARIN SODIUM,PORCINE 5000 UNITS/ML VIAL SUBCUT SCH ×2 (09:29→21:05)
--- NOTE | 2016-12-06 10:00 | NUR ---
rounds was up with pt and dorys well. and walked at bedside. seen by dr talbert.
--- NOTE | 2016-12-06 11:18 | NUR ---
DISCHARGE PLANNING DC planning to [facility]. Faxed SNF referral to [facility] [phone]. will follow up. Addendum: 12/06/16 at 1508 by Marion BARAKAT Spoke with Jennifer in admitting at [facility] facility not contracted and pending insurance [employer]. Jennifer stated once received will be able to give bed assignment. ROLANDO Myers made aware. Addendum: 12/06/16 at 1551 by Lucia Bustillo RN DC PLANNING: Contacted WILL KING CM TEL #[phone] X [phone] . She is off today but requested FS, dc order with detail IV ABX and PT notes be faxed to fax # [phone] -- attn : Oni phone# [phone] X [phone] and a [facility] cm will call back to determine LOC and to provide the SNF list. -- CM to f/u.
--- NOTE | 2016-12-06 12:00 | NUR ---
rounds asleep at this time.no acute distress noted.
[2016-12-06] MEDS: cefTRIAXone 1 GM in D5W 50 ML IV SCH (12:15)
[2016-12-06] MEDS: INSULIN REGULAR, HUMAN 100 UNITS/ML, 10 ML VIAL (novoLIN R) SUBCUT PRN ×2 (12:23→18:32)
[2016-12-06 12:34] VITALS: BP 118/67; PULSE 61; RESP 17; TEMP 98.9; O2SAT 61
--- NOTE | 2016-12-06 13:03 | NUR ---
Nutrition F/U Admitting Diagnosis (modified) sepsis, right-sided aspiration pneumonia, chest pain, UTI, moderate malnutrition Past Medical History (modified) DM, dementia (Alzheimer's type), hypothyroidism Pertinent Medications synthroid, culturelle, heparin Na, levemir, piperacillin/tazobactam, Mg sulfate, K-Dur, zofran, ativan, colace, morphine, D50%-syringe, glucose, SSI PRN, NaCl IVF [facility] Height (Feet) 5 feet Height (Inches) 6.00 inches Weight (Pounds) 185 pounds (admission) 12/06/16: 182 lb, 83 kg (bedscale) Weight (Calculated Kilograms) 83.904793 kilograms Patient Weight 83.915 kg Body Mass Index 29.86 kg/m2 [place]/Adjusted Body Weight IBW: 142 lb/64.5 kg; 130% IBW; adj BW (obesity): 139 lb/69 kg Estimated Needs 2075-1095 kcal/day (BEE x 1.2-1.5 for sepsis) Grams of Protein per Day 81-108 gm/day (1.5-2 gm/kg IBW for sepsis) Fluid Intake Goal 1.9-2.3 L/day (1 ml/kcal/day for maintenance) Pertinent Labs 12/06/16: K 3.4 L, BG 95 WNL (improved), POC BG 217 H, WBC 10.8 WNL (improved), Hgb 12.3 L, BUN 7 L 12/05/16: Mg 1.7 WNL (improved) 12/03/16: ALT 11 L, TSH 6.23 H, ALB 2.6 L 12/02/16: HDL 35 L, lactic acid 6.2 H Other Subjective Data Physical: Pt seen resting in bed, awake and alert. Pt is Niuean speaking only. No family or caregivers at bedside to help with interview. computer science intern able to understand some of what was said. Pt appeared adequately nourished for height. Bedscale weight: 182 lb, c/w admission weight. No significant wt changes noted. GI Integrity: Abdomen is soft and non-distended with active bowel sounds, no issues noted. Last BM x1 recorded 12/05, diarrhea per pt. Pt denies n/v. PO Intakes: PO records average 72% x8 meals. Pt reports good appetite. Pt continues to tolerate diet, but complains that he isn't given enough food. Integumentary: Solomon score 12 (12/05/16), left and right arm bruise per RN notes. Plans/Procedures: DC planning, SNF placement. Current diet is adequate and appropriate. DM diet education packet given in Niuean. Problem, Etiology, Signs/Symptoms Increased nutrient needs related to metabolic demands as evidenced by elevated WBC and lactic acid lab values and estimated nutritional needs for sepsis. * resolved Expected Outcomes or Goals 1. Meet at least 75% of estimated needs with acceptable tolerance 2. Labs trending within normal limits 3. Maintain skin integrity 4. Maintain weight status 5. Improved GI function Dietitian Recommendations * Continue CCHO diet per MD * Encourage PO intake as tolerated Follow Up Low Risk: F/U in 7 days Addendum: 12/06/16 at [address] CORRECTIONS: Grams of Protein per Day 97-129 gm/day (1.5-2 gm/kg IBW for sepsis) [place] reviewed/approved advisory internship's note. [place] PEARSON Addendum: 12/06/16 at [address] CORRECTIONS: Grams of Protein per Day 97-129 gm/day (1.5-2 gm/kg IBW for sepsis) RD reviewed/approved advisory internship's note. LP, RD
--- NOTE | 2016-12-06 14:00 | NUR ---
rounds sleeping at this time. no sob noted. resting quietly.
[2016-12-06 15:31] VITALS: BP 128/70; PULSE 100; RESP 19; TEMP 98.1; O2SAT 100
--- NOTE | 2016-12-06 16:00 | NUR ---
rounds pt pulled out iv and reinserted on the l forearm by an nurse ofelia. no infiltration and infusing well. sleeps at intervals.
--- NOTE | 2016-12-06 16:38 | NUR ---
PHYSICAL THERAPY CO-SIGN The Physical Therapy Progress Notes documented by Contact [employer] Flashing Puncher have been reviewed. Reviewed/Co-Signed by: Maryam Rodriguez Documentation Done by:AISHA FAY LOW ALTITUDE AIR DEFENSE OFFICER POC REVIEWED W/ LOW ALTITUDE AIR DEFENSE OFFICER; WILL BENEFIT W/ P.T.; PROGRESS JOEL. Addendum: 12/07/16 at 1557 by Maryam Rodriguez PT Amended: Links added.
--- NOTE | 2016-12-06 18:20 | NUR ---
closing notes no hypo hyperglycemic reaction noted. with periods of confusion again and trying to pull out his iv. wrapped with david. no sob noted. resting quietly, pr close to the nurses station.
[2016-12-06] MEDS: POTASSIUM CHLORIDE 10 MEQ TAB.PRT.SR PO PRN (18:35)
--- NOTE | 2016-12-06 19:50 | NUR ---
ROUNDS PATIENT IN BED, VITALS STABLE, DENIES ANY PAIN AND DISCOMFORT AT THIS TIME. ASSESSMENT DONE AND DOCUMENTED. SEE FLOWSHEET. SAFETY AND FALL PRECAUTION MEASURES IN PLACED. BED IN LOW AND LOCKED POSITION. CALL LIGHT PLACED WITHIN REACH.
--- NOTE | 2016-12-06 21:00 | NUR ---
NOTES PATIENT REFUSED ACCU CHECK AT THIS TIME, SAYING HE WANTS TO GO TO SLEEP AND NOT TO BE BOTHERED. RISKS AND BENEFITS EXPLAINED TO PATIENT, PATIENT STILL REFUSING. WILL CONTINUE TO MONITOR.
[2016-12-06] MEDS: FLUCONAZOLE 200 mg/ NS 100 ML IV SCH (21:03)
--- NOTE | 2016-12-07 | NUR ---
PATIENT RESTING: Patient resting quietly. No acute distress noted. Vital signs within normal range.
[2016-12-07 00:26] VITALS: BP 143/68; PULSE 57; RESP 20; TEMP 96.7; O2SAT 98
[2016-12-07] MEDS: NACL 0.9% 1,000 ML IV SCH ×2 (00:34→08:28)
--- NOTE | 2016-12-07 02:00 | NUR ---
ROUNDS PATIENT ASLEEP, NO SOB NOTED, WILL CONTINUE TO MONITOR.
--- NOTE | 2016-12-07 04:00 | NUR ---
PATIENT RESTING: Patient resting quietly. No acute distress noted. Vital signs within normal range.
[2016-12-07 04:29] VITALS: BP 127/64; PULSE 60; RESP 16; TEMP 97.9; O2SAT 99
[2016-12-07] MEDS: LEVOTHYROXINE SODIUM 0.025 MG TABLET PO SCH (06:16)
[2016-12-07] MEDS: INSULIN REGULAR, HUMAN 100 UNITS/ML, 10 ML VIAL (novoLIN R) SUBCUT PRN ×3 (06:18→22:27)
--- NOTE | 2016-12-07 06:57 | NUR ---
CLOSING NOTES PATIENT RESTING COMFORTABLY IN BED, VITALS STABLE, NO PAIN AND DISCOMFORT AT THIS TIME. ALL NEEDS ATTENDED TO. CALL LIGHT PLACED WITH PATIENT.
[2016-12-07 07:12] LABS: ANION GAP 7 (5-15); BASOPHILS # (AUTO) 0.1 K/uL (0.0-0.2); BASOPHILS % (AUTO) 0.6 % (0.0-2.0); CALCIUM 8.7 mg/dL (8.4-11.0); CHLORIDE 105 mmol/L (98-107); CREATININE 1.03 mg/dL (0.55-1.30); EOSINOPHILS # (AUTO) 0.4 K/uL (0.0-0.4); EOSINOPHILS % (AUTO) 3.7 % (0.0-4.0); GLUCOSE 193 mg/dL (70-99); HEMOGLOBIN 12.4 g/dL (14.0-18.0); LYMPHOCYTES # (AUTO) 2.3 K/uL (1.0-5.5); LYMPHOCYTES % (AUTO) 20.6 % (20.5-51.5); MEAN CORPUSCULAR HEMOGLOBIN 31 pg (27-31); MEAN CORPUSCULAR HGB CONC 34 % (32-36); MEAN CORPUSCULAR VOLUME 93 fL (79.0-98.0); MONOCYTES # (AUTO) 0.9 K/uL (0.0-1.0); MONOCYTES % (AUTO) 8.5 % (1.7-9.3); NEUTROPHILS # (AUTO) 7.4 K/uL (1.8-7.7); NEUTROPHILS % (AUTO) 66.6 % (40.0-70.0); PLATELET COUNT (AUTO) 240 K/uL (130-430); POTASSIUM 4.1 mmol/L (3.5-5.1); RED BLOOD CELL COUNT(AUTO) 3.96 MIL/uL (4.2-6.2); RED CELL DISTRIBUTION WIDTH 13.4 % (9.0-15.0); SODIUM SERUM 137 mmol/L (136-145); UREA NITROGEN, BLOOD 9 mg/dL (8-21); WHITE BLOOD COUNT (AUTO) 11.1 K/uL (4.8-10.8)
--- NOTE | 2016-12-07 08:00 | NUR ---
PATIENT A/OX2. IV ON RIGHT FOREARM, #22, INFUSED WITH NS 100ML/HR, INTACT AND PATENT. SIDE RAILS UPX3. PATIENT IS INSTRUCTED TO USE CALL LIGHT FOR NEEDS, BED AT LOWEST POSITION, BED ALARM IS ON. WILL CONTINUE TO MONITOR.
[2016-12-07] MEDS: LACTOBACILLUS RHAMNOSUS GG 1 CAP CAPSULE PO SCH (08:22)
[2016-12-07] MEDS: HEPARIN SODIUM,PORCINE 5000 UNITS/ML VIAL SUBCUT SCH ×2 (08:24→22:26)
--- NOTE | 2016-12-07 10:10 | NUR ---
PATIENT IS SEEN AMBULATING ALONG THE HALLWAY WITH PT. NO SIGNS OF DISTRESS NOTED AT THIS TIME.
--- NOTE | 2016-12-07 10:52 | NUR ---
DC PLANNING: F/U on snf list from [facility] ( Faxed request yesterday). S/w Isatu #[phone] dcp at [facility] , stated " she is sending out some referrals to SNF for a middle or intermediate school principal /prison placement in the area 10 miles from the pt. residence in [place]. She also sending the SNF list to us to help finding the accepting facility, since this case might be a difficult placement. Addendum: 12/07/16 at 1342 by Lucia Bustillo RN >> Notified the pt.'s son, Clement # [phone] re: dcp to snf. [facility] diana Trevizo is working on finding the placement. Clement aware that the facility may be in [facility] or locally in [facility] pending on acceptance and bed availability. Clement is agreeable the POC. Addendum: 12/07/16 at 1704 by Marion BARAKAT Received care first contracted SNF list. Faxed SN[facility] referral [facility]. Will follow up in AM.
[2016-12-07] MEDS: cefTRIAXone 1 GM in D5W 50 ML IV SCH (10:53)
--- NOTE | 2016-12-07 12:00 | NUR ---
PATIENT PULLED OUT HIS IV. IV INSERTED ON LEFT HAND, #24, INTACT AND PATENT.
[2016-12-07 12:25] VITALS: BP 118/64; PULSE 65; RESP 16; TEMP 98.5; O2SAT 98
--- NOTE | 2016-12-07 14:20 | NUR ---
PATIENT IS TAKEN TO BATHROOM WITH ASSISTANCE OF RN.NO SIGNS OF DISTRESS NOTED AT THIS TIME.
[2016-12-07 16:19] VITALS: BP 112/57; PULSE 61; RESP 18; TEMP 97.6; O2SAT 94
--- NOTE | 2016-12-07 16:30 | NUR ---
Patient is assisted to bathroom. No signs of distress noted.
--- NOTE | 2016-12-07 18:50 | NUR ---
Patient pulled out his IV. IV is reinserted at Left FA, #24, Intact and patent.
[2016-12-07 19:30] VITALS: BP 142/69; PULSE 62; RESP 16; TEMP 97.5; O2SAT 97
--- NOTE | 2016-12-07 19:30 | NUR ---
initial note pt. received aaox4, no s/s of sob or distress noted. pt. denies pain at this time. VSS. pt. is cooperative and engaging in conversation. IV access noted to left forearm, covered with dressing. day nurse states pt. ripped out IV multiple times. will re start IV fluids as they were not infusing. Plan of care discussed with pt., verbalizes some understanding. will continue to monitor for any changes. safety and fall precautions in place. call light in reach, bed alarm on.
--- NOTE | 2016-12-07 22:03 | NUR ---
rounds pt. resting in bed. no s/s of sob or distress noted. new IV started because old one was not flushing and fluids were not infusing well. new access to right forearm #22 gauge, pt. tolerated well. IV fluids initiated and are infusing well. will continue to monitor for any changes. snack provided for pt. per his request. call light in reach, bed alarm on.
[2016-12-07] MEDS: FLUCONAZOLE 200 mg/ NS 100 ML IV SCH (22:23)
[2016-12-08] VITALS (7 sets, daily range): BP systolic 108–140; BP diastolic 56–79; PULSE 53–63; RESP 16–20; TEMP 96.4–99.1; O2SAT 95–99
--- NOTE | 2016-12-08 00:04 | NUR ---
rounds pt. resting in bed with eyes closed. no s/s of sob or distress noted. IV fluids infusing well as ordered. will continue to monitor for any changes. safety and fall precautions in place. call light in reach, bed alarm on.
--- NOTE | 2016-12-08 02:00 | NUR ---
rounds pt. resting in bed with eyes closed. chest rise and fall noted. no s/s of sob or distress, no facial grimacing indicating any pain. will continue to monitor for any changes. safety and fall precautions in place. call light in reach.
--- NOTE | 2016-12-08 04:05 | NUR ---
rounds pt. resting in bed with eyes closed. no facial grimacing indicating any pain. no s/s of sob noted. IV fluids infusing well as ordered. will continue to monitor for any changes. safety and fall precautions in place. call light in reach, bed alarm on.
[2016-12-08] MEDS: NACL 0.9% 1,000 ML IV SCH ×3 (05:27→23:16)
[2016-12-08] MEDS: LEVOTHYROXINE SODIUM 0.025 MG TABLET PO SCH (06:18)
--- NOTE | 2016-12-08 06:53 | NUR ---
CLOSING NOTE BLOOD SUGAR THIS AM WAS 128, NO COVERAGE NEEDED. PT. RESTING IN BED WITH EYES OPEN, NO S/S OF SOB OR DISTRESS. PT. DENIES PAIN. IV FLUIDS INFUSING WELL ORDERED. AM ORAL MEDICATIONS WERE GIVEN AND NO DIFFICULTIES WITH SWALLOWING WERE NOTED. ALL NECESSARY NEEDS WERE MET. SAFETY AND FALL PRECAUTIONS WERE MAINTAINED. WILL ENDORSE CARE TO AM NURSE. CALL LIGHT IN REACH, BED ALARM ON.
--- NOTE | 2016-12-08 08:00 | NUR ---
AM Initial Notes Pt aaox3, Haitian speaking with episodes of confusion and forgetfulness. No complaints of pain or discomfort. No sob, difficulty breathing , or distress noted. Pt is incontinent at times. Fall and safety precautions enforced with bed alarm armed and close to nurse's station. Pt is cooperative and calm. Encouraged to call for assistance. Call light within reach. Will monitor.
[2016-12-08] MEDS: HEPARIN SODIUM,PORCINE 5000 UNITS/ML VIAL SUBCUT SCH ×2 (09:03→20:45)
--- NOTE | 2016-12-08 09:45 | NUR ---
Pt refused physical therapy.
--- NOTE | 2016-12-08 10:00 | NUR ---
Rounds Pt awake resting in bed. No complaints of pain or discomfort. No distress noted. Encouraged to call for assistance. Call light within reach. Will monitor.
[2016-12-08] MEDS: cefTRIAXone 1 GM in D5W 50 ML IV SCH (10:13)
[2016-12-08] MEDS: INSULIN REGULAR, HUMAN 100 UNITS/ML, 10 ML VIAL (novoLIN R) SUBCUT PRN ×3 (11:37→20:44)
--- NOTE | 2016-12-08 11:45 | NUR ---
ACCUCHECK BLOOD SUGAR MONITOR 175. INSULIN SLIDING SCALE ADMINISTERED.
--- NOTE | 2016-12-08 11:50 | NUR ---
>> DC PLANNING: Updated Mo, [facility] still [facility]. Mo stated: " she will assist with the placement."
--- NOTE | 2016-12-08 12:19 | NUR ---
LUNCH PT EATING LUNCH. NO SIGNIFICANT CHANGES NOTED. ENCOURAGED TO CALL FOR ASSISTANCE. WILL MONITOR.
--- NOTE | 2016-12-08 14:00 | NUR ---
Rounds Pt sound asleep. No significant signs of facial grimacing for pain or discomfort. No distress noted. Bed alarm armed. Will monitor.
--- NOTE | 2016-12-08 16:00 | NUR ---
Rounds Pt asleep but easily awakened. No complaints of pain or discomfort. No distress noted. Kept comfortable. Encouraged to call for assistance. Will monitor.
--- NOTE | 2016-12-08 16:00 | NUR ---
PHYSICAL THERAPY CO-SIGN The Physical Therapy Progress Notes documented by [employer] have been reviewed. Reviewed/Co-Signed by: Sonay Restrepo, PT Documentation Done by: Theo Enriquez PTA I concur with the documentation of this CLINICAL NURSING DIRECTOR. Plan: continue PT as per plan of care. Addendum: 12/09/16 at 0856 by Sonya Restrepo PT Amended: Links added.
--- NOTE | 2016-12-08 16:42 | NUR ---
Faxed SNF referral to [facility]. Called and spoke with Darby in admitting patient denied. Called CM Mo [phone] [id number] left voice message requesting return call back. Spoke with Bree at [facility] able to accept patient on AZALIA from insurance. DCP will follow up with insurance in AM if AZALIA can be provided for patient discharge. Pendroy Zita, [facility] [place], [facility], [facility] denied patient. ROLANDO Myers made aware. Addendum: 12/09/16 at 1645 by Lucia Bustillo RN >> F/U with Wei, re: AZALIA for [facility]. She stated that " [facility] is not willing to negotiate with medicare rate. So that she will have her assistance work on getting another facility for the pt. Please f/u with the medical certification specialist cm at opt #7." Dr. Chiang and Isabel made aware.
--- NOTE | 2016-12-08 18:30 | NUR ---
Closing Notes Pt awake resting in bed. No significant changes noted. Kept comfortable. Encouraged to call for assistance. Will endorse care to incoming nurse.
--- NOTE | 2016-12-08 19:52 | NUR ---
OPENING NOTE Pt. and bedside report received from day shift nurse. Pt. is resting quietly in bed and in stable condition. Requested to let [him] "get some rest." Plan of care and safety measures discussed with pt. and how to use call light for any needs. Pt. verbalized understanding. Will continue to monitor. Addendum: 12/08/16 at 1953 by Sarah Martin RN WRONG PATIENT
--- NOTE | 2016-12-08 19:54 | NUR ---
OPENING NOTE Pt. and bedside report received from day shift nurse. Pt. is awake and in stable condition. Plan of care and safety measures discussed with pt. and how to use call light for any needs. Bed alarm on. Will continue to monitor.
[2016-12-08] MEDS: FLUCONAZOLE 200 mg/ NS 100 ML IV SCH (20:38)
--- NOTE | 2016-12-08 22:00 | NUR ---
REQUESTED SANDWICH Late entry due to pt. care. Pt. is resting quietly in bed with no s/s of acute distress. Requested turkey sandwich. Pt. denies any pain or discomfort at this time. Safety measures in place. Bed alarm on. Will continue to monitor.
--- NOTE | 2016-12-08 22:30 | NUR ---
EMPTIED URINAL Late entry due to pt. care. Emptied 600mls of yellow urine from urinal. Pt. denies any other needs at this time. Safety measures in place. bed alarm on. Encouraged pt. to use call light for any needs. Will continue to monitor.
--- NOTE | 2016-12-08 23:18 | NUR ---
ROUNDS Late entry due to pt. care. Pt. is resting quietly in bed with no s/s of acute distress. Safety measures in place. Bed alarm on. Will continue to monitor.
--- NOTE | 2016-12-08 23:35 | NUR ---
EMPTIED URINAL Emptied 100mls from urinal. Pt. denies any other needs or pain/discomfort at this time. Safety measures in place. Encouraged pt. to use call light for needs. Will cont to monitor.
--- NOTE | 2016-12-09 00:25 | NUR ---
ROUNDS Pt. is resting quietly in bed with no s/s of acute distress. Safety measures in place. Bed alarm on. Call light on lap. Will continue to monitor.
--- NOTE | 2016-12-09 01:17 | NUR ---
INCONTINENCE CARE Pt. had (1) soft bowel movement; incontinence and skin care provided. Linen changed due to soiling. Pt. tolerated well. Pt. denies any other needs at this time. Denies any pain or discomfort. Safety measures in place. Bed alarm on. Encouraged pt. to use call light for any needs. Will continue to monitor.
--- NOTE | 2016-12-09 02:30 | NUR ---
ROUNDS Pt. is awake and resting quietly in bed with no s/s of acute distress. Safety measures in place. Bed alarm on. Encouraged pt. to use call light for any needs. Pt. verbalized understanding. Will continue to monitor.
[2016-12-09] MEDS: NACL 0.9% 1,000 ML IV SCH ×2 (03:32→17:17)
[2016-12-09 03:51] VITALS: BP 125/67; PULSE 58; RESP 18; TEMP 96.8; O2SAT 97
--- NOTE | 2016-12-09 04:43 | NUR ---
WARM BLANKET/EMPTIED URINAL Pt. requested warm blanket. Emptied 100mls of yellow urine from urinal. Pt. denies any pain or discomfort at this time. Safety measures in place. Bed alarm on. Encouraged pt. to use call light for assistance. Will continue to monitor.
[2016-12-09] MEDS: LEVOTHYROXINE SODIUM 0.025 MG TABLET PO SCH (06:08)
--- NOTE | 2016-12-09 07:51 | NUR ---
CLOSING NOTES Pt. and bedside report given to day shift nurse. Pt. is stable with no significant changes. All needs met throughout shift. Safety measures in place. Endorsed care to day shift nurse.
[2016-12-09 08:00] VITALS: BP 124/70; PULSE 60; RESP 20; TEMP 97.6; O2SAT 95
--- NOTE | 2016-12-09 08:28 | NUR ---
OPENING NOTE RECEIVED REPORT FROM NIGHT NURSE, PATIENT IS RESTING IN BED COMFORTABLY WITH NO COMPLAINTS OF PAIN, NO NOTED DISTRESS, DISCOMFORT OR SOB. PATIENT IS ALERT AND ORIENTED AND ABLE TO COMMUNICATE NEEDS TO STAFF. PATIENT IS BEDREST AND BED IS IN LOWEST POSITION AND IS EDUCATED NOT TO GET UP WITHOUT ASSISTANCE. CALL LIGHT IS WITHIN REACH AND WILL CONTINUE MONITOR
[2016-12-09] MEDS: HEPARIN SODIUM,PORCINE 5000 UNITS/ML VIAL SUBCUT SCH ×2 (08:50→21:50)
[2016-12-09] MEDS: cefTRIAXone 1 GM in D5W 50 ML IV SCH (10:17)
--- NOTE | 2016-12-09 11:40 | NUR ---
NOTE PATIENT IS RESTING IN BED COMFORTABLY WITH NO COMPLAINTS OF PAIN, NO NOTED DISTRESS, DISCOMFORT OR SOB. BED IS IN LOWEST POSITION AND CALL LIGHT IS WITHIN REACH. WILL CONTINUE TO MONITOR.
[2016-12-09] MEDS: INSULIN REGULAR, HUMAN 100 UNITS/ML, 10 ML VIAL (novoLIN R) SUBCUT PRN ×2 (12:06→17:16)
[2016-12-09 12:31] VITALS: BP 131/61; PULSE 59; RESP 16; TEMP 97.9; O2SAT 98
--- NOTE | 2016-12-09 13:00 | NUR ---
PT NOTES MADE 3 ATTEMPTS TO SEE PATIENT FOR PHYSICAL THERAPY AT 850, 1045, AND 1300 WITH PATIENT REFUSING THERAPY. PT AGITATED AND SHOUTING ON NOT WANTING TO PARTICIPATE WITH THERAPY. EDUCATED PATIENT THE IMPORTANCE AND BENEFITS OF PERFORMING PHYSICAL THERAPY. DISCUSSED WITH PRIMARY PHYSICAL THERAPIST TO D/C PATIENT FROM PT, AND ENDORSE PATIENT TO NURSING FOR AMBULATION. PT DISPLAYS INDEPENDENT WITH BED MOB AND MOD I WITH GAIT TRAINING DUE TO FWW. PVE(2)) Addendum: 12/09/16 at 1530 by Sonya Restrepo PT PHYSICAL THERAPY CO-SIGN The Physical Therapy Progress Notes documented by [employer] Logger have been reviewed. Reviewed/Co-Signed by: Sonya Restrepo, PT Documentation Done by: Theo Enriquez, AUDIOVISUAL LIBRARIAN I concur with the documentation of this AUDIOVISUAL LIBRARIAN. Plan: we'll DC PT services now due to his poor participation with PT's POC.
[2016-12-09 16:07] VITALS: BP 129/62; PULSE 63; RESP 17; TEMP 98; O2SAT 99
--- NOTE | 2016-12-09 17:00 | NUR ---
NOTE PATIENT IS RESTING IN BED COMFORTABLY WITH NO COMPLAINTS OF PAIN, NO NOTED DISTRESS, DISCOMFORT OR SOB. PATIENT'S BS WAS 162 AND 2 UNITS OF REGULAR WERE GIVEN WITH ANOTHER RN TO WITNESS. CALL LIGHT IS WITHIN REACH AND WILL CONTINUE TO MONITOR.
--- NOTE | 2016-12-09 18:50 | NUR ---
CLOSING NOTE PATIENT IS RESTING IN BED COMFORTABLY WITH NO COMPLAINTS OF PAIN, NO NOTED DISTRESS, DISCOMFORT OR SOB. BED IS IN LOWEST POSITION AND CALL LIGHT IS WITHIN REACH. BED ALARM IS ON AND WILL GIVE REPORT TO NIGHT NURSE.
[2016-12-09 19:30] VITALS: BP 124/65; PULSE 60; RESP 16; TEMP 97.3; O2SAT 96
--- NOTE | 2016-12-09 19:30 | NUR ---
initial note pt. received aaox3, no s/s of sob or distress noted. VSS. pt. denies any pain at this time. pt. found with IV not connected. IV reconnected, and IV fluids now infusing as ordered. cleaned pt. as he had an episode of incontinence in the bed. provided with new linen, and hygiene care. plan of care discussed with the pt. verbalizes understanding. will continue to monitor for any changes. safety and fall precautions in place. call light in reach. bed in lowest position, alarm on.
[2016-12-09] MEDS: FLUCONAZOLE 200 mg/ NS 100 ML IV SCH (21:40)
[2016-12-09] MEDS: ZOLPIDEM TARTRATE 5 MG TABLET PO PRN (21:42)
--- NOTE | 2016-12-09 22:01 | NUR ---
rounds pt. resting in bed with eyes open. no s/s of sob or distress noted. pt. denies any pain. iv fluids infusing well as ordered. will continue to monitor for any changes. safety and fall precautions in place. call light in reach, bed alarm on.
[2016-12-09 22:52] VITALS: BP 125/69; PULSE 58; RESP 20; TEMP 97.8; O2SAT 97
--- NOTE | 2016-12-10 | NUR ---
rounds pt. asked for assistance to restroom. at this time, it was discovered that pt. removed his IV. stated he did not want it because it bothers him. when pt. was asked if a new one could be restarted he stated that he would just remove it again. explained to the pt. the importance of having an IV in place in order to receive his fluids and antibiotics. continue to refuse IV at this time. will try again at a later time. pt. taken to restroom and assisted back to bed in a comfortable position. will continue to monitor. safety and fall precautions in place. call light in reach. bed alarm on.
--- NOTE | 2016-12-10 02:03 | NUR ---
rounds pt. attempted to get out of bed, alarm went off. pt. seemed somewhat confused. when asked if he needed something he said no, but that he just wanted to get up. reminded pt. that it is the middle of the night and that he should try to get some sleep. verbalized understanding. assisted pt. back to a comfortable position in bed. no s/s of sob or distress noted. pt. denies any pain or discomfort. bed alarm on. bed in lowest position. siderails up x3. call light in reach. encouraged to call for assistance. pt. refuses to have IV put in place at this time. still without access, will attempt to re start IV this AM.
[2016-12-10 03:28] VITALS: BP 137/63; PULSE 60; RESP 20; TEMP 97.8; O2SAT 97
--- NOTE | 2016-12-10 04:15 | NUR ---
ROUNDS PT. RESTING IN BED. NO S/S OF ACUTE DISTRESS NOTED. PT. DENIES PAIN AT THIS TIME. CONTINUES TO REFUSE IV INSERTION. REMINDED PT. THE IMPORTANCE OF HAVING IV ACCESS. CONTINUES TO REFUSE. WILL ATTEMPT TO INSERT IV AGAIN AT A LATER TIME. SAFETY AND FALL PRECAUTIONS IN PLACE. CALL LIGHT IN REACH, BED ALARM ON.
[2016-12-10] MEDS: LEVOTHYROXINE SODIUM 0.025 MG TABLET PO SCH (06:03)
[2016-12-10] MEDS: INSULIN REGULAR, HUMAN 100 UNITS/ML, 10 ML VIAL (novoLIN R) SUBCUT PRN ×3 (06:10→21:38)
--- NOTE | 2016-12-10 06:45 | NUR ---
CLOSING NOTE NEW IV ACCESS OBTAINED ON RIGHT HAND 22 GAUGE. PT. TOLERATED WELL. BLOOD SUGAR THIS MORNING WAS 151, 2 UNITS OF REGULAR INSULIN GIVEN PER SLIDING SCALE. ALL NECESSARY NEEDS WERE MET. SAFETY AND FALL PRECAUTIONS MAINTAINED. WILL ENDORSE CARE TO AM NURSE. CALL LIGHT IN REACH, BED ALARM ON.
--- NOTE | 2016-12-10 07:34 | NUR ---
INITIAL NOTES RECEIVED PATIENT ON BED AWAKE.BREATHING EVEN AND UNLABORED WITH O2 AT 2L/M VIA NASAL CANNULA.NO ACUTE DISTRESS.IVF AT TKO;NO SIGNS AND SYMPTOMS OF INFILTRATION.SAFETY AND FALL PRECAUTIONS IN PLACE.CALL LIGHT WITHIN REACH Addendum: 12/10/16 at 1024 by Martina Chand RN WRONG PATIENT-ERROR
--- NOTE | 2016-12-10 07:36 | NUR ---
AM ROUNDS Pt sleeping..Respirations even/unlabored, good chest rise/fall...New IV to RH started by noc nurse...IVF not connected, due to pt being agitated earlier..Will re-start IVF...Call light/phone w/in reach...Will cont to monitor
[2016-12-10 07:40] VITALS: BP 176/75; PULSE 67; RESP 19; TEMP 97.7; O2SAT 95
[2016-12-10] MEDS: HEPARIN SODIUM,PORCINE 5000 UNITS/ML VIAL SUBCUT SCH ×2 (08:32→21:37)
[2016-12-10 08:43] VITALS: BP 124/64; PULSE 68; RESP 18; TEMP 98.3; O2SAT 97
[2016-12-10] MEDS: cefTRIAXone 1 GM in D5W 50 ML IV SCH (10:14)
--- NOTE | 2016-12-10 11:00 | NUR ---
PT HAD SMALL MARBLE SIZE BM LILIYA-CARE DONE...GOWN CHANGED
--- NOTE | 2016-12-10 11:20 | NUR ---
ENCOURAGED PT TO GET OOB AND TO SIT UP IN CHAIR FOR LUNCH PT HESITANT AT FIRST, EDUCATED PT ON THE IMPORTANCE OF HAVING HIM GET OUT OF BED AND MOVE AROUND. HE AGREED..INFORMED PT THAT I WOULD LIKE HIM TO HAVE LUNCH IN CHAIR INSTEAD OF IN BED AND AFTER LUNCH WE WILL ASSIST HIM BACK TO BED...PT AGREED AND IS HAPPY
--- NOTE | 2016-12-10 11:30 | NUR ---
ROLANDO DC PLANNING: [facility] SPOKE WITH STEM THRESHING MACHINE OPERATOR/MARICARMEN AT [facility]; SHE STATED FACILITY REC'd INQUIRY FROM [address] CM YESTERDAY. THEY HAVE A BED BUT ARE REQUESTING FINANCIAL INFORMATION. ROLANDO/ELLA FAXED FACESHEET AND INCLUDED WEEKEND CM CONTACT NUMBER: [phone] FOR THEM TO OBTAIN AUTH NUMBER FOR TRANSFER DC TODAY. MARICARMEN IS WAITING FOR OK FROM DIR OF NURSING/RESIDENT CARE MANAGER AT FACILITY; AND, WILL NOTIFY THIS CM WHEN BED AVAILABLE. PER DR. MORA THIS A.M. WHEN HE WAS HERE FOR A.M. ROUNDS, Pt CAN BE TRANSFERRED AND HE WILL PROVIDE DC ORDER WHEN SNF BED IS OBTAINED. 1355: CALL BACK TO MARICARMEN ABOUT BED AVAILABILITY; [place]ERSTOOD [place] [facility] [place]; CLARIFIED WITH MARICARMEN THAT Pt LIVES AT [facility], BUT REQUIRES SNF LOC AT THIS TIME. MARICARMEN TO FURTHER DISCUSS ADMISSION WITH DON/ADM AND WILL F/UP WITH CM. 1420: CM CALLED TO ON-CALL CM AT [address]; S/W ROLANDO/ABIMBOLA WHO IS ON-CALL TODAY; HE REQUESTED THAT CM CONTACT [facility] FOR AVAILABLE BEDS HE NEEDS TO CHECK TO SEE IF [facility] IS [facility]. INFORMED ROLANDO/ABIMBOLA THAT Pt IS CURRENTLY RENTING A ROOM IN [place] [address] HAS [address] ADDRESS IN [place]. CALLED TO [facility]; NO MALE BEDS TODAY; CAN CHECK NEXT WEEK. [facility] STATES THEY HAVE MALE BED; AND INQUIRY WAS SENT AT 1452. ROLANDO/ABIMBOLA CALLED BACK; STATED THEY ARE CONTRACTED WITH [facility] AND [facility]. HE PROVIDED HIS CELL NUMBER FOR AUTHORIZATION WHEN SNF IS DETERMINED AND BED IS AVAILABLE. HIS CELL # FOR FACILITY TO OBTAIN AUTH: [id number]. PER ROLANDO/ABIMBOLA, ANY AMBULANCE COMPANY CAN BE CONTACTED TO PROVIDE THE TRANSPORT. CALL BACK FROM MARICARMEN AT [facility]; UNDERSTOOD THEY DON'T HAVE ANY MALE BEDS AT EITHER FACILITY TO ACCEPT Pt THERE TODAY. [facility]UL[facility] CONTACTED TO STATE THAT ADMITTING RN IS TRANSFERRING A Pt TO A HOSPITAL; SHE OR THIS RN WILL CONTACT [facility] OR NURSING STATION: [phone] FOR BED NUMBER IF ACCEPTED. TRANSPORT PACKET PREPARED BY ROLANDO/MEÑO; CM MANAGER ESTATE CAN CONTACT [facility] OR ANY AMBULANCE THAT HAS AVAILABLE TIME FOR BLS PICK-UP TODAY FOR DISCHARGE WHEN BED IS AVAILABLE. ROLANDO/MEÑO ALSO FAXED AN INQUIRY TO [facility]; STEM THRESHING MACHINE OPERATOR TO ASK IF THEY ARE CONTRACTED WITH [address].
--- NOTE | 2016-12-10 11:50 | NUR ---
PT AMBULATED TO RESTROOM WITH MINIMAL ASSISTANCE PT AMBULATED WITH STEADY GAIT...
[2016-12-10 12:00] VITALS: BP 137/72; PULSE 60; RESP 21; TEMP 98.9; O2SAT 98
--- NOTE | 2016-12-10 14:10 | NUR ---
PATIENT RESTING: Patient resting quietly. No acute distress noted. Vital signs within normal range.
[2016-12-10] MEDS: NACL 0.9% 1,000 ML IV SCH (15:16)
--- NOTE | 2016-12-10 15:40 | NUR ---
SLEEPING PT SLEEPING...RESPIRATIONS EVEN/UNLABORED....CHEST RISE/FALL SYMMETRICALLY...WILL CONT TO MONITOR
[2016-12-10 16:00] VITALS: BP 139/65; PULSE 62; RESP 21; TEMP 97.7; O2SAT 98
--- NOTE | 2016-12-10 16:30 | NUR ---
CM DC PLANNING: [facility] THERE HAVE BEEN SEVERAL COMMUNICATIONS WITH [facility] MACHINE STRAP BUCKLER/PAULA AND ROUTER MACHINE OPERATOR/ADELA. CM CONTACTED DR. MORA WHO STATED THAT Pt WILL NEED TO CONTINUE WITH IV DIFLUCAN AND ROCEPHIN X 5 MORE DAYS; DR. MORA WILL CONTINUE TO FOLLOW AT [facility]; AND THAT IV ATIVAN CAN BE DISCONTINUED WITH OTHER MEDS TO CONTINUE IN HOSPITAL. DC ORDER NOT ENTERED STILL WAITING TO SEE IT [facility] WILL ACCEPT Pt TODAY. CM RECEIVED CALL FROM [employer] THAT MACHINE STRAP BUCKLER WANTS TO CONFIRM INSURANCE RATES FOR Pt TO HAVE IV ANTIBIOTICS X 5 DAYS PER ROLANDO/ABIMBOLA AT [address], THEY WILL NOT AUTHORIZE PT SINCE Pt HAS BEEN REFUSING TO PARTICPATE DURING HOSPITAL STAY. THEREFORE, FACILITY WILL NOT ADMIT Pt TODAY; WILL CONSIDER FOR ADMISSION TOMORROW; AND INFORMATION LEFT FOR JEAN TO FOLLOW-UP TOMORROW ABOUT TRANSFER. DR. MORA NOTIFIED THAT [facility] DID NOT ACCEPT FOR ADMISSION TODAY; DC ORDERS WERE NOT ENTERED; AND ROLANDO/MEÑO WILL FOLLOW-UP WITH [facility] TOMORROW. DR. MORA ALSO UPDATED ON Pt REFUSING PT WHICH MAY MAKE IT DIFFICULT TO DC HIM BACK TO HIS [facility] FOR PLACE WHERE HE RENTS A ROOM.
--- NOTE | 2016-12-10 17:10 | NUR ---
PT PULLED OUT IV PT HAD HAND HIDDEN UNDER BLANKET, I ASKED THE PT TO LET ME SEE HIS HAND, HE SHOWED ME HIS LEFT HAND, I SAID "NO. LET ME SEE YOUR RIGHT HAND"..PT SHOWED ME HIS RIGHT HAND, DRESSING WAS OFF, ALONG WITH IV. ASKED PT WHY DID HE TAKE HIS IV OUT, THAT IT WAS JUST INSERTED THIS MORNING, PT STATED " I DO NOT NEED IT" ..INFORMED PT THAT A NEW IV WILL HAVE TO BE INSERTED, PT REFUSED AT THIS TIME...WILL INFORM DOCTOR OF PT CONTINUING TO PULL OUT IVs AND REFUSING RE-INSERTION...
--- NOTE | 2016-12-10 17:34 | NUR ---
PER DR MORA..LEAVE IV OUT FOR NOW ...DR MORA AWARE OF IV ANTIBIOTIC, SAID IT IS OKAY. WHY INSERT ANOTHER IV RIGHT NOW, WHEN PT WILL JUST PULL IT OUT AGAIN...DR MORA WOULD LIKE TO RE-ATTEMPT TO INSERT ANOTHER IV TOMORROW
--- NOTE | 2016-12-10 18:53 | NUR ---
ROUNDS PT STABLE..NO CHANGES...COMFORTABLE...DENIES PAIN...WILL CONT TO MONITOR
[2016-12-10 19:40] VITALS: BP 145/96; PULSE 60; RESP 16; TEMP 97.6; O2SAT 98
--- NOTE | 2016-12-10 19:40 | NUR ---
initial note pt. received aaox3, no s/s of sob or distress noted. VSS. pt. denies any pain at this time. day nurse diana stated that pt removed his iv access, made aware, said it is okay to leave him without access. cleaned pt. as he had an episode of incontinence in the bed. provided with new linen, and hygiene care. plan of care discussed with the pt. verbalizes understanding. will continue to monitor for any changes. safety and fall precautions in place. call light in reach. bed in lowest position, alarm on.
[2016-12-10] MEDS: FLUCONAZOLE 200 mg/ NS 100 ML IV SCH (21:00)
[2016-12-10] MEDS: ZOLPIDEM TARTRATE 5 MG TABLET PO PRN (21:33)
--- NOTE | 2016-12-10 22:01 | NUR ---
ROUNDS PT. RESTING IN BED WITH EYES CLOSED. CHEST RISE AND FALL NOTED. NO S/S OF SOB OR DISTRESS NOTED. NO FACIAL GRIMACING INDICATING PAIN. MEDICATION WAS GIVEN FOR SLEEP AND SEEMS TO BE EFFECTIVE. WILL CONTINUE TO MONITOR. SAFETY AND FALL PRECAUTIONS IN PLACE. CALL LIGHT IN REACH. BED ALARM ON.
--- NOTE | 2016-12-11 00:06 | NUR ---
rounds pt. resting in bed with eyes closed. chest rise and fall noted. no s/s of sob or distress. no facial grimacing indicating any pain. will continue to monitor. safety and fall precautions in place, call light in reach, alarm on.
[2016-12-11 00:45] VITALS: BP 125/66; PULSE 53; RESP 16; TEMP 97.6; O2SAT 99
--- NOTE | 2016-12-11 03:35 | NUR ---
rounds pt. resting in bed with eyes open. no s/s of sob or distress noted. pt. denies any pain. will continue to monitor for any changes. safety and fall precautions in place. call light in reach, bed alarm on.
[2016-12-11 04:00] VITALS: BP 114/63; PULSE 65; RESP 18; TEMP 97.6; O2SAT 95
[2016-12-11] MEDS: LEVOTHYROXINE SODIUM 0.025 MG TABLET PO SCH (06:26)
--- NOTE | 2016-12-11 06:28 | NUR ---
BLOOD SUGAR BLOOD SUGAR WAS 65, PT. STATES HE FEELS FINE. DOES NOT APPEAR ALTERED IN ANY WAY. APPLE JUICE AND GRAHM CRACKERS PROVIDED. WILL RE CHECK IN 15 MINS.
--- NOTE | 2016-12-11 06:44 | NUR ---
BLOOD SUGAR BLOOD SUGAR FOLLOWING APPLE JUICE AND GRAHDesmond CRACKERS WAS 63. WILL ADMINISTER D50. Addendum: 12/11/16 at 0655 by Mely Lemus RN will give 15 GM of glucose gel, pt. does not have iv access.
[2016-12-11] MEDS: GLUCOSE 15 GM GEL (in 37.5 GM TUBE) PO PRN (06:50)
--- NOTE | 2016-12-11 07:20 | NUR ---
BLOOD SUGAR ORAL GLUCOSE WAS GIVEN, BS 69. WILL ADMINISTER ANOTHER DOSE OF ORAL GLUCOSE ORDERED. DAY NURSE GRAHAM MADE AWARE AND WILL RECHECK BLOOD SUGAR. IF NOT WITHIN NORMAL RANGE, WILL NOTIFY MD. PT. STATES HE FEELS OKAY. NO S/S OF HYPOGLYCEMIA NOTED. CALL LIGHT IN REACH, CARE ENDORSED TO GRAHAM.
[2016-12-11] MEDS: NACL 0.9% 1,000 ML IV SCH (07:30)
--- NOTE | 2016-12-11 07:36 | NUR ---
BLOOD SUGAR..76 AFTER 2 GLUCO-GELS GIVEN PT ASYMPTOMATIC. PT A/O, NO S/SX OF HYPOGLYCEMIA...BREAKFAST TRAY GIVEN...WILL EMLEY BLOOD SUGAR AGAIN IN 15 MINUTES
--- NOTE | 2016-12-11 08:00 | NUR ---
BLOOD SUGAR...111...DR ABBY ASHBY (PER PROTOCOL) PT SITTING UP IN BED EATING BREAKFAST...NO S/SX OF HYPOGLYCEMIA...WILL CONT TO MONITOR
--- NOTE | 2016-12-11 09:00 | NUR ---
PT STABLE...RESTING...NO S/SX OF HYPOGLYCEMIA WILL CONT TO MONITOR
[2016-12-11] MEDS: HEPARIN SODIUM,PORCINE 5000 UNITS/ML VIAL SUBCUT SCH (09:10)
[2016-12-11] MEDS: cefTRIAXone 1 GM in D5W 50 ML IV SCH (11:00)
--- NOTE | 2016-12-11 11:20 | NUR ---
ASSISTED PT OOB AND TO CHAIR
[2016-12-11] MEDS: INSULIN REGULAR, HUMAN 100 UNITS/ML, 10 ML VIAL (novoLIN R) SUBCUT PRN (11:45)
[2016-12-11 12:00] VITALS: BP 119/63; PULSE 67; RESP 20; TEMP 96.5; O2SAT 97
--- NOTE | 2016-12-11 14:31 | NUR ---
DC PLANNING: ACCEPTED AT [facility] ROOM# 104, ARRANGED TRANSPORTATION FOR [id number] VIA [facility]. PLS GIVE REPORT TO TEL# [phone].
[2016-12-11 15:27] VITALS: BP 121/63; PULSE 64; RESP 19; TEMP 99.1; O2SAT 100
[2016-12-11 15:43] VITALS: BP 123/63; PULSE 64; RESP 19; TEMP 99.1; O2SAT 100
--- NOTE | 2016-12-11 15:49 | NUR ---
CHEST PAIN PT C/O NON-RADIATING SUBSTERNAL CHEST PAIN. DENIES ANY SHORTNESS OF BREATH...WILL OBTAIN VITAL SIGNS AND PAGE DR MORA
--- NOTE | 2016-12-11 16:00 | NUR ---
VS: 137/66, HR:58-62, 97% ON ROOM AIR PAIN 05/11
[2016-12-11] MEDS: ACETAMINOPHEN 325 MG TABLET PO PRN (16:07)
--- NOTE | 2016-12-11 16:11 | NUR ---
VS RECHECKED: 133/61, 62, 97%, PAIN 8/10
--- NOTE | 2016-12-11 16:13 | NUR ---
[address]ND PAGE TO DR MORA AWAITING CALL BACK
--- NOTE | 2016-12-11 16:27 | NUR ---
3RD PAGE TO DR MORA..CALL WENT STRAIGHT TO [facility] WILL RE-PAGE AGAIN IN 15 MINUTES
--- NOTE | 2016-12-11 16:30 | NUR ---
ORDER GIVEN BY DR MORA IF PT CONTINUES WITH 8 OR GREATER CHEST PAIN OKAY TO GIVE NTG SL 0.5mg x1 only...
--- NOTE | 2016-12-11 16:45 | NUR ---
CHEST PAIN SUBSIDING...PAIN REDUCED TO 6-7/10
[2016-12-11] MEDS ORDERED: NITROGLYCERIN 0.4 MG TAB.SUBL SL ONE (17:00)
--- NOTE | 2016-12-11 17:00 | NUR ---
PT TRANSFERRED Report given to CHERIE MORFIN at [facility]. Transfer packet with Transfer Orders and Medication Reconciliation form given to EMT with report. Exitcare provided. [facility] ID band removed, replaced with ID band with pt's name and . IV catheter removed, intact and dressing applied, no active bleeding. All belongings sent with patient. Patient left floor via gurney escorted by EMT in no distress.
[2016-12-12] MEDS ORDERED: FLUCONAZOLE 100 MG TABLET (DIFLUCAN) PO SCH (09:00)
== END 2016-12-11 17:00 | DRG 871 ==
LOC: EDBD 05:16 → SED 05:16 → STU 07:25 → SMU 12-06 13:52
PROVIDERS: ADMIT General Practice; ATTEND General Practice
DX: A41.9 Sepsis, unspecified organism (principal); J69.0 Pneumonitis due to inhalation of food and vomit; N39.0 Urinary tract infection, site not specified; B37.49 Other urogenital candidiasis; E44.0 Moderate protein-calorie malnutrition; E11.65 Type 2 diabetes mellitus with hyperglycemia; G20 Parkinson's disease; I45.10 Unspecified right bundle-branch block; E03.9 Hypothyroidism, unspecified; F02.80 Dementia in other diseases classified elsewhere, unspecified severity, without behavioral disturbance, psychotic disturbance, mood disturbance, and anxiety; G30.9 Alzheimer's disease, unspecified; I10 Essential (primary) hypertension; Z51.5 Encounter for palliative care; M19.90 Unspecified osteoarthritis, unspecified site; Z98.49 Cataract extraction status, unspecified eye; Z87.828 Personal history of other (healed) physical injury and trauma; Z68.29 Body mass index [BMI] 29.0-29.9, adult
CPT/HCPCS: 36415; 71010; 71260-TC; 80048; 80053; 80061; 81000-TC; 82550-TC; 82962; 83605; 83735-TC; 83880; 84443-TC; 84484; 85007; 85025; 85027; 85379; 85610-TC; 85730-TC; 87040-TC; 87086; 93005; 93306; 96361; 96365; 96375; 97110-GP; 97116-GP; 97530-GP; 99285; J0696; J1450; J1644; J1815; J2060; J2270; J2543; J3370; J3475; J7030; J7050; J7060; Q9967

== ENCOUNTER 2017-02-13 20:08 | Inpatient (IN) | payer MEDICARE ==
[2016-12-03 19:00] VITALS: Ht 167.6 cm; Wt 71.7 kg
[~2017-02-13] VITALS: Ht 167.6 cm; Wt 71.7 kg
[2017-02-13 20:14] VITALS: BP 121/66; PULSE 71; RESP 16; TEMP 99; O2SAT 98
[2017-02-13] MEDS ORDERED: NACL 0.9% 1,000 ML IV ONE (20:45)
[2017-02-13 21:13] LABS: BASOPHILS # (AUTO) 0.1 K/uL (0.0-0.2); BASOPHILS % (AUTO) 0.6 % (0.0-2.0); EOSINOPHILS # (AUTO) 0.1 K/uL (0.0-0.4); EOSINOPHILS % (AUTO) 1.7 % (0.0-4.0); HEMATOCRIT 45.1 % (36-54); HEMOGLOBIN 14.8 g/dL (14.0-18.0); LYMPHOCYTES # (AUTO) 2.2 K/uL (1.0-5.5); LYMPHOCYTES % (AUTO) 25.7 % (20.5-51.5); MEAN CORPUSCULAR HEMOGLOBIN 30 pg (27-31); MEAN CORPUSCULAR HGB CONC 33 % (32-36); MEAN CORPUSCULAR VOLUME 91 fL (79.0-98.0); MONOCYTES # (AUTO) 0.5 K/uL (0.0-1.0); NEUTROPHILS # (AUTO) 5.8 K/uL (1.8-7.7); PLATELET COUNT (AUTO) 224 K/uL (130-430); RED BLOOD CELL COUNT(AUTO) 4.98 MIL/uL (4.2-6.2); WHITE BLOOD COUNT (AUTO) 8.7 K/uL (4.8-10.8)
[2017-02-13 21:22] LABS: ALANINE AMINOTRANSFERASE 19 U/L (12-78); ALBUMIN 3.6 g/dL (3.4-4.8); ANION GAP 8 (5-15); ASPARTATE AMINOTRANSFERASE 11 U/L (10-37); CHLORIDE 99 mmol/L (98-107); POTASSIUM 3.8 mmol/L (3.5-5.1); SODIUM SERUM 132 mmol/L (136-145); TOTAL BILIRUBIN 0.3 mg/dL (0.0-1.0); TOTAL PROTEIN, SERUM 7.1 g/dL (6.4-8.3); UREA NITROGEN, BLOOD 20 mg/dL (8-21)
[2017-02-13 21:29] LABS: GLUCOSE 447 mg/dL (70-99)
[2017-02-13 21:48] LABS: BILIRUBIN,URINE NEGATIVE (NEGATIVE); BLOOD, URINE NEGATIVE (NEGATIVE); CLARITY/URINE CLEAR (CLEAR); COLOR,URINE YELLOW (YELLOW); GLUCOSE,URINE 3+ (NEGATIVE); KETONES,URINE NEGATIVE (NEGATIVE); LEUKOCYTE ESTERASE ,URINE NEGATIVE (NEGATIVE); NITRITE, URINE NEGATIVE (NEGATIVE); PROTEIN URINE NEGATIVE (NEGATIVE); UROBILINOGEN,URINE 0.2 (0.2-1.0)
[2017-02-13] MEDS ORDERED: MELA1TAB29 PO (22:03)
[2017-02-13] MEDS ORDERED: POTA20TA83 PO (22:03)
[2017-02-13] MEDS ORDERED: LEVO25TA7 PO (22:03)
[2017-02-13] MEDS ORDERED: HYDR-4100 PO (22:03)
[2017-02-13] MEDS ORDERED: INSU100V32 SUBCUT (22:03)
[2017-02-13] MEDS ORDERED: GLU850 PO (22:03)
[2017-02-13] MEDS ORDERED: INSU100V11 SQ (22:03)
[2017-02-13] MEDS ORDERED: DOCU-144 PO (22:03)
[2017-02-13] MEDS ORDERED: SSREG SUBCUT (22:03)
[2017-02-13] MEDS ORDERED: LORA-258 PO (22:03)
[2017-02-13] MEDS ORDERED: DONE5TAB3 PO (22:03)
[2017-02-13] MEDS ORDERED: ASPI-1063 PO (22:03)
[2017-02-13] MEDS ORDERED: ACET325T53 PO (22:03)
[2017-02-13] MEDS ORDERED: MULT-1117 PO (22:03)
[2017-02-13] MEDS ORDERED: INSULIN ASPART 100 UNITS/ML, 10 ML VIAL (NovoLOG) SUBCUT PRN (22:30)
[2017-02-13] MEDS ORDERED: HYDROcodone/ACETAMIN 10-325 MG TAB PO PRN (22:30)
[2017-02-13] MEDS ORDERED: DOCUSATE SODIUM 100 MG CAPSULE PO PRN (22:30)
[2017-02-13] MEDS ORDERED: MORPHINE 2 MG/ML INJ. SYRINGE IVP PRN (22:30)
[2017-02-13] MEDS ORDERED: ZOLPIDEM TARTRATE 5 MG TABLET PO PRN (22:30)
[2017-02-13] MEDS ORDERED: LORazepam 2 MG/ML VIAL IVP PRN (22:30)
[2017-02-13] MEDS ORDERED: ACETAMINOPHEN 325 MG TABLET PO PRN ×2 (22:30)
[2017-02-13] MEDS ORDERED: POTASSIUM CHLORIDE 10 MEQ TAB.PRT.SR PO PRN (22:30)
[2017-02-13] MEDS ORDERED: DEXTROSE 50% JECT 50 ML DISP.SYRIN IVP PRN (22:30)
[2017-02-13] MEDS ORDERED: ONDANSETRON HCL 4 MG/2 ML VIAL IVP PRN (22:30)
[2017-02-13] MEDS ORDERED: MAGNESIUM SULFATE 50 ML IV PRN (22:30)
[2017-02-13 22:45] LABS: BACTERIA,URINE RARE /HPF (None Seen); MUCUS,URINE None Seen /LPF (None Seen); RBC,URINE NONE SEEN /HPF (0-3); WBC,URINE 0-3 /HPF (0-3)
[2017-02-13 23:03] VITALS: BP 144/77; PULSE 71; RESP 18; TEMP 97.4; O2SAT 98
[2017-02-13] MEDS: NACL 0.9% 1,000 ML IV SCH (23:19)
[2017-02-13] MEDS: INSULIN ASPART 100 UNITS/ML, 10 ML VIAL (NovoLOG) SUBCUT PRN (23:28)
[2017-02-14 00:03] VITALS: BP 144/77; PULSE 72; RESP 16; TEMP 97.4; O2SAT 98
[2017-02-14 04:00] VITALS: BP 116/62; PULSE 66; RESP 16; TEMP 98.6; O2SAT 93
[2017-02-14] MEDS: LEVOTHYROXINE SODIUM 0.025 MG TABLET PO SCH ×2 (06:42→06:45)
[2017-02-14 07:05] LABS: ANION GAP 4 (5-15); CALCIUM 8.7 mg/dL (8.4-11.0); CHLORIDE 107 mmol/L (98-107); CREATININE 0.96 mg/dL (0.55-1.30); GLUCOSE 93 mg/dL (70-99); POTASSIUM 3.7 mmol/L (3.5-5.1); SODIUM SERUM 139 mmol/L (136-145); UREA NITROGEN, BLOOD 13 mg/dL (8-21)
[2017-02-14 07:10] LABS: BASOPHILS % (AUTO) 0.4 % (0.0-2.0); EOSINOPHILS # (AUTO) 0.2 K/uL (0.0-0.4); EOSINOPHILS % (AUTO) 1.5 % (0.0-4.0); HEMATOCRIT 42.3 % (36-54); HEMOGLOBIN 14.2 g/dL (14.0-18.0); LYMPHOCYTES # (AUTO) 2.5 K/uL (1.0-5.5); LYMPHOCYTES % (AUTO) 21.9 % (20.5-51.5); MEAN CORPUSCULAR HEMOGLOBIN 31 pg (27-31); MEAN CORPUSCULAR HGB CONC 34 % (32-36); MEAN CORPUSCULAR VOLUME 91 fL (79.0-98.0); MONOCYTES # (AUTO) 0.8 K/uL (0.0-1.0); MONOCYTES % (AUTO) 6.9 % (1.7-9.3); NEUTROPHILS # (AUTO) 7.8 K/uL (1.8-7.7); NEUTROPHILS % (AUTO) 69.3 % (40.0-70.0); PLATELET COUNT (AUTO) 233 K/uL (130-430); RED BLOOD CELL COUNT(AUTO) 4.65 MIL/uL (4.2-6.2); RED CELL DISTRIBUTION WIDTH 13.5 % (9.0-15.0)
[2017-02-14 07:15] LABS: WHITE BLOOD COUNT (AUTO) 11.3 K/uL (4.8-10.8)
[2017-02-14 08:00] VITALS: BP 112/67; PULSE 78; RESP 16; TEMP 97.8; O2SAT 97
[2017-02-14] MEDS: ASPIRIN 81 MG TABLET(ECOTRIN) PO SCH (09:34)
[2017-02-14] MEDS: DOCUSATE SODIUM 100 MG CAPSULE PO SCH ×2 (09:34→20:35)
[2017-02-14] MEDS: HEPARIN SODIUM,PORCINE 5000 UNITS/ML VIAL SUBCUT SCH ×2 (09:39→20:35)
[2017-02-14] MEDS: INSULIN ASPART 100 UNITS/ML, 10 ML VIAL (NovoLOG) SUBCUT PRN ×3 (11:53→20:34)
[2017-02-14] MEDS: NACL 0.9% 1,000 ML IV SCH (12:00)
[2017-02-14 12:59] VITALS: BP 120/66; PULSE 70; RESP 17; TEMP 98.4; O2SAT 95
[2017-02-14 16:03] VITALS: BP 124/65; PULSE 72; RESP 17; TEMP 98; O2SAT 96
[2017-02-14 19:30] VITALS: BP 135/68; PULSE 62; RESP 18; TEMP 97; O2SAT 97
[2017-02-14] MEDS: DONEPEZIL HCL 5 MG TABLET (ARICEPT) PO SCH (20:36)
[2017-02-14] MEDS ORDERED: DONEPEZIL HCL 5 MG TABLET (ARICEPT) PO SCH (21:00)
[2017-02-15] VITALS (7 sets, daily range): BP systolic 114–148; BP diastolic 64–100; PULSE 62–72; RESP 15–20; TEMP 97.2–99.1; O2SAT 96–100
[2017-02-15] MEDS: NACL 0.9% 1,000 ML IV SCH ×2 (02:01→16:37)
[2017-02-15] MEDS: LEVOTHYROXINE SODIUM 0.025 MG TABLET PO SCH (06:25)
[2017-02-15] MEDS: INSULIN ASPART 100 UNITS/ML, 10 ML VIAL (NovoLOG) SUBCUT PRN ×2 (06:27→21:17)
[2017-02-15 06:31] LABS: BASOPHILS % (AUTO) 0.5 % (0.0-2.0); EOSINOPHILS # (AUTO) 0.2 K/uL (0.0-0.4); EOSINOPHILS % (AUTO) 2.6 % (0.0-4.0); HEMATOCRIT 40.8 % (36-54); LYMPHOCYTES # (AUTO) 2.8 K/uL (1.0-5.5); LYMPHOCYTES % (AUTO) 32.6 % (20.5-51.5); MEAN CORPUSCULAR HEMOGLOBIN 31 pg (27-31); MEAN CORPUSCULAR HGB CONC 34 % (32-36); MEAN CORPUSCULAR VOLUME 90 fL (79.0-98.0); MONOCYTES # (AUTO) 0.5 K/uL (0.0-1.0); MONOCYTES % (AUTO) 5.5 % (1.7-9.3); NEUTROPHILS # (AUTO) 5.1 K/uL (1.8-7.7); NEUTROPHILS % (AUTO) 58.8 % (40.0-70.0); PLATELET COUNT (AUTO) 205 K/uL (130-430); RED BLOOD CELL COUNT(AUTO) 4.52 MIL/uL (4.2-6.2); RED CELL DISTRIBUTION WIDTH 13.5 % (9.0-15.0); WHITE BLOOD COUNT (AUTO) 8.6 K/uL (4.8-10.8)
[2017-02-15 06:39] LABS: ANION GAP 7 (5-15); CALCIUM 8.6 mg/dL (8.4-11.0); CHLORIDE 105 mmol/L (98-107); CREATININE 0.98 mg/dL (0.55-1.30); GLUCOSE 264 mg/dL (70-99); POTASSIUM 3.6 mmol/L (3.5-5.1); SODIUM SERUM 135 mmol/L (136-145); UREA NITROGEN, BLOOD 13 mg/dL (8-21)
[2017-02-15] MEDS: MEMANTINE HCL 5 MG TABLET PO SCH (08:25)
[2017-02-15] MEDS: ASPIRIN 81 MG TABLET(ECOTRIN) PO SCH (08:26)
[2017-02-15] MEDS: DOCUSATE SODIUM 100 MG CAPSULE PO SCH ×2 (08:26→21:12)
[2017-02-15] MEDS: HEPARIN SODIUM,PORCINE 5000 UNITS/ML VIAL SUBCUT SCH ×2 (08:27→21:14)
[2017-02-15] MEDS: DONEPEZIL HCL 5 MG TABLET (ARICEPT) PO SCH (21:12)
[2017-02-15] MEDS: MUPIROCIN 2% TOPICAL OINTMENT 22 GM TP SCH (21:12)
[2017-02-16 05:30] VITALS: BP 122/89; PULSE 69; RESP 18; TEMP 97; O2SAT 95
[2017-02-16] MEDS: LEVOTHYROXINE SODIUM 0.025 MG TABLET PO SCH (06:09)
[2017-02-16] MEDS: NACL 0.9% 1,000 ML IV SCH (06:09)
[2017-02-16] MEDS: INSULIN ASPART 100 UNITS/ML, 10 ML VIAL (NovoLOG) SUBCUT PRN ×3 (06:14→17:59)
[2017-02-16 07:05] LABS: BASOPHILS # (AUTO) 0.1 K/uL (0.0-0.2); BASOPHILS % (AUTO) 0.8 % (0.0-2.0); EOSINOPHILS # (AUTO) 0.2 K/uL (0.0-0.4); HEMATOCRIT 39.4 % (36-54); LYMPHOCYTES # (AUTO) 2.4 K/uL (1.0-5.5); LYMPHOCYTES % (AUTO) 34.6 % (20.5-51.5); MEAN CORPUSCULAR HEMOGLOBIN 30 pg (27-31); MEAN CORPUSCULAR HGB CONC 33 % (32-36); MEAN CORPUSCULAR VOLUME 91 fL (79.0-98.0); MONOCYTES # (AUTO) 0.5 K/uL (0.0-1.0); MONOCYTES % (AUTO) 7.1 % (1.7-9.3); NEUTROPHILS # (AUTO) 3.7 K/uL (1.8-7.7); NEUTROPHILS % (AUTO) 54.5 % (40.0-70.0); PLATELET COUNT (AUTO) 191 K/uL (130-430); RED BLOOD CELL COUNT(AUTO) 4.35 MIL/uL (4.2-6.2); RED CELL DISTRIBUTION WIDTH 13.8 % (9.0-15.0); WHITE BLOOD COUNT (AUTO) 6.9 K/uL (4.8-10.8)
[2017-02-16 07:16] LABS: ANION GAP 4 (5-15); CALCIUM 8.4 mg/dL (8.4-11.0); CHLORIDE 105 mmol/L (98-107); CREATININE 0.97 mg/dL (0.55-1.30); GLUCOSE 228 mg/dL (70-99); POTASSIUM 3.6 mmol/L (3.5-5.1); SODIUM SERUM 135 mmol/L (136-145); UREA NITROGEN, BLOOD 10 mg/dL (8-21)
[2017-02-16 08:30] VITALS: BP 115/54; PULSE 70; RESP 18; TEMP 97.2; O2SAT 95
[2017-02-16] MEDS: DOCUSATE SODIUM 100 MG CAPSULE PO SCH (08:54)
[2017-02-16] MEDS: ASPIRIN 81 MG TABLET(ECOTRIN) PO SCH (08:54)
[2017-02-16] MEDS: MEMANTINE HCL 5 MG TABLET PO SCH (08:54)
[2017-02-16] MEDS: MUPIROCIN 2% TOPICAL OINTMENT 22 GM TP SCH (08:55)
[2017-02-16] MEDS: HEPARIN SODIUM,PORCINE 5000 UNITS/ML VIAL SUBCUT SCH (08:56)
[2017-02-16 12:00] VITALS: BP 124/68; PULSE 70; RESP 19; TEMP 98.9; O2SAT 98
[2017-02-16 16:38] VITALS: BP 126/81; PULSE 58; RESP 18; TEMP 98.6; O2SAT 98
[2017-02-16 17:36] VITALS: BP 126/81; PULSE 58; RESP 18; TEMP 98.6; O2SAT 98
[2017-02-16 20:28] VITALS: BP 135/70; PULSE 64; RESP 17; TEMP 98.5; O2SAT 98
== END 2017-02-16 20:35 | DRG 637 ==
LOC: SED 20:08 → SMU 22:16
PROVIDERS: ADMIT General Practice; ATTEND General Practice
DX: E11.65 Type 2 diabetes mellitus with hyperglycemia (principal); G93.41 Metabolic encephalopathy; E87.1 Hypo-osmolality and hyponatremia; D72.829 Elevated white blood cell count, unspecified; F02.80 Dementia in other diseases classified elsewhere, unspecified severity, without behavioral disturbance, psychotic disturbance, mood disturbance, and anxiety; G30.9 Alzheimer's disease, unspecified; E03.9 Hypothyroidism, unspecified; I10 Essential (primary) hypertension; R26.81 Unsteadiness on feet; Z91.19 Patient's noncompliance with other medical treatment and regimen; Z71.3 Dietary counseling and surveillance; Z79.4 Long term (current) use of insulin; Z79.899 Other long term (current) drug therapy
CPT/HCPCS: 36415; 71010; 80048; 80053; 81000-TC; 82962; 83735-TC; 85025; 87081; 96360; 99285; J1644; J1815; J3475; J7030